=== PATIENT | female | born 1975 | race Hispanic/Latino ===

== ENCOUNTER 2017-12-15 20:16 | Emergency (ER) | payer OTHER ==
[2017-12-15 21:32] LABS: Absolute Lymphocytes (CBC) 1.8 K/uL (0.7-4.9); Absolute Monocytes 0.6 K/uL (0.1-1.3); Absolute Neutrophil 4.8 K/uL (1.8-8.0); Basophils % 0.7 % (0-1.3); Eosinophils % 2.2 % (0-4.4); Hematocrit 32.4 % (36.0-45.0); Lymphocytes % 23.8 % (15.3-44.8); MCH 22.7 pg (27.0-35.0); MPV 7.1 fL (7.6-11.3); Monocytes % 8.2 % (3.3-12.3)
--- NOTE | 2017-12-15 21:35 | RAD REPORT ---
EXAM DESCRIPTION: RAD - Chest Single View - 12/15/2017 9:28 pm CLINICAL HISTORY: Chest pain. COMPARISON: 12/10/2016 FINDINGS: Portable technique limits examination quality. The lungs are grossly clear. The heart is normal in size. No displaced fractures. IMPRESSION: No acute intrathoracic process suspected.
[2017-12-15 21:40] LABS: Protime INR 0.98
[2017-12-15 21:50] LABS: Urine Blood NEGATIVE (NEG); Urine Glucose NEGATIVE (NEG); Urine Protein NEGATIVE (NEG); Urine Specific Gravity 1.015 (1.005-1.030)
[2017-12-15 21:56] LABS: Potassium 3.8 mEq/L (3.6-5.0)
[2017-12-15 21:57] LABS: Barbiturates NEGATIVE; Benzodiazepines NEGATIVE; Cocaine NEGATIVE; METHAMPHETAM NEGATIVE; Opiates NEGATIVE; Phencyclidine NEGATIVE; THC Cannibis NEGATIVE
[2017-12-15 22:01] LABS: Anisocytosis 1+; Blood Morphology Comment NOTED (NOT SEEN); Platelet Estimate ADEQ; Urine White Blood Cell Casts OK
[2017-12-15 22:02] LABS: Albumin 3.9 g/dL (3.2-5.5); Bilirubin Direct 0.1 mg/dL (0-0.2); Bilirubin Total 0.4 mg/dL (0.3-1.2); Magnesium 1.9 mg/dL (1.8-2.5); Protein, Total 7.5 g/dL (6.0-8.3)
[2017-12-15 22:06] LABS: CKMB Creatine Kinase MB 0.7 ng/ml (0.3-4.0)
[2017-12-15] MEDS ORDERED: ASPIRIN 81 MG CHEWABLE TABLET ONE (23:33)
--- NOTE | 2017-12-16 01:28 | ER ---
Nurse's Notes [facility] Name: Saba Zelaya Age: 42 yrs Sex: Female : 1975 Arrival Date: 12/15/2017 Time: 20:20 Bed 27 Private MD: Diagnosis: Chest pain, unspecified Presentation: 12/15 20:24 Presenting complaint: states: Patient began feeling numb, shaky, trembling to lp1 lower lip; Numbness resolved at this time; States dry mouth; hx of anxiety. Transition of care: patient was not received from another setting of care. Onset of symptoms was December 15, 2017 at 20:00. Care prior to arrival: None. 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 - Social history:: Smoking status: Patient/guardian denies using tobacco. Screenin:28 Abuse screen: Denies threats or abuse. Denies injuries from another. Nutritional lp1 screening: No deficits noted. Tuberculosis screening: No symptoms or risk factors identified. Fall Risk None identified. Assessment: 21:08 General: Appears in no apparent distress. Behavior is calm, cooperative, appropriate lk1 for age. Pain: Denies pain. Neuro: Level of Consciousness is awake, alert, obeys commands, Oriented to person, place, time, situation, Moves all extremities. Full function Gait is steady, Speech is normal, Facial symmetry appears normal, Pupils are PERRLA. Neuro: Denies paresthesias numbness. Cardiovascular: Heart tones S1 S2 present Capillary refill is brisk Patient's skin is warm and dry. Respiratory: Airway is patent Respiratory effort is even, unlabored, Respiratory pattern is regular, symmetrical, Breath sounds are clear bilaterally. GI: Abdomen is non-distended, Bowel sounds present X 4 quads. : No signs and/or symptoms were reported regarding the genitourinary system. EENT: No signs and/or symptoms were reported regarding the EENT system. Derm: No signs and/or symptoms reported regarding the dermatologic system. Musculoskeletal: No signs and/or symptoms reported regarding the musculoskeletal system. 22:00 Reassessment: Patient and/or family updated on plan of care and expected duration. Pain lk1 level reassessed. Patient is alert, oriented x 3, equal unlabored respirations, skin warm/dry/pink. Patient denies pain at this time. Patient states symptoms have improved. 12/16 00:00 Reassessment: Patient and/or family updated on plan of care and expected duration. Pain lk1 level reassessed. Patient is alert, oriented x 3, equal unlabored respirations, skin warm/dry/pink. Patient denies pain at this time. Patient states feeling better. Patient states symptoms have improved. 01:00 Reassessment: Patient and/or family updated on plan of care and expected duration. Pain lk1 level reassessed. Patient is alert, oriented x 3, equal unlabored respirations, skin warm/dry/pink. Patient denies pain at this time. Patient states feeling better. Patient states symptoms have improved. Critical care time stopped, patient has stabilized. Vital Signs: 12/15 20:26 BP 116 / 88; Pulse 87; Resp 18; Temp 97.9(O); Pulse Ox 100% on R/A; Weight 97.52 kg; lp1 Height 5 ft. 4 in. (162.56 cm); Pain 0/10; 21:30 BP 111 / 69; Pulse 72; Resp 16; Pulse Ox 97% on R/A; lk1 22:30 BP 111 / 74; Pulse 71; Resp 15; Pulse Ox 97% on R/A; lk1 23:30 BP 120 / 72; Pulse 69; Resp 14; Pulse Ox 100% on R/A; lk1 12/16 00:30 BP 121 / 77; Pulse 75; Resp 15; Pulse Ox 99% on R/A; Pain 0/10; lk1 01:30 BP 120 / 82; Pulse 69; Resp 15; Pulse Ox 100% on R/A; Pain 0/10; lk1 12/15 20:26 Body Mass Index 36.90 (97.52 kg, 162.56 cm) lp1 ED Course: 12/15 20:20 Patient arrived in ED. am2 20:26 Triage completed. lp1 20:26 Arm band placed on left wrist. lp1 20:51 Fletcher Larson PA is PHCP. cp 20:51 Fletcher Jackson MD is Attending Physician. cp 21:06 Zaida Barksdale, RN is Primary Nurse. lk1 21:09 Patient has correct armband on for positive identification. Placed in gown. Bed in low lk1 position. Call light in reach. Adult w/ patient. 21:25 X-ray completed. Portable x-ray completed in exam room. Patient tolerated procedure kc2 well. 21:26 XRAY Chest (1 view) In Process Unspecified. EDMS 21:35 Inserted saline lock: 20 gauge in right antecubital area, using aseptic technique. lk1 Blood collected. 12/16 01:27 Beck Oliveira MD is Referral Physician. cp 02:00 No provider procedures requiring assistance completed. IV discontinued, intact, lk1 bleeding controlled, No redness/swelling at site. Pressure dressing applied. Administered Medications: 12/15 22:45 Drug: Aspirin Chewable Tablet 324 mg Route: PO; lk1 23:30 Follow up: Response: No adverse reaction lk1 Outcome: 12/16 01:27 Discharge ordered by . cp 02:00 Discharged to home ambulatory, with family. lk1 02:00 Condition: good 02:00 Discharge instructions given to patient, family, Instructed on discharge instructions, follow up and referral plans. medication usage, safety practices, Demonstrated understanding of instructions, follow-up care, medications. 02:01 Patient left the ED. lk1 Signatures: Dispatcher [employer] EDMS Bettina Tompkins, RN RN lp1 Fletcher Larson PA PA cp Zaida Barksdale, ABE RN lk1 Dasia Cardoso kc2 Jess Mcneal am2
--- NOTE | 2017-12-16 01:28 | EDPHYS ---
Physician Documentation [facility] Name: Saba Zelaya Age: 42 yrs Sex: Female : 1975 Arrival Date: 12/15/2017 Time: 20:20 Bed 27 Private MD: ED Physician Fletcher Jackson HPI: 12/15 21:00 This 42 yrs old Female presents to ER via Ambulatory with complaints of cp Numbness Of Arm, Shakes. 21:00 The patient or guardian reports chest pain that is located primarily in the anterior cp chest wall. 21:00 Onset: and improved while in ED, this evening. The pain radiates to. Associated signs cp and symptoms: Pertinent positives: tremor and numbness of bilateral upper extremities. Symptoms started suddenly about [address] in car with . The chest pain is described as a pressure. Duration: The patient or guardian reports a single episode, that is now resolved. 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 - Social history:: Smoking status: Patient/guardian denies using tobacco. ROS: 21:10 Constitutional: Positive for malaise, Negative for body aches, chills, fever, poor PO cp intake, weight loss. 21:10 Eyes: Negative for injury, pain, redness, and discharge. cp 21:10 ENT: Negative for drainage from ear(s), ear pain, sore throat, difficulty swallowing, difficulty handling secretions, hoarseness. 21:10 Cardiovascular: Positive for chest pain, Negative for edema. 21:10 Respiratory: Negative for cough, shortness of breath, wheezing. 21:10 Abdomen/GI: Negative for abdominal pain, nausea, vomiting, and diarrhea, anorexia, black/tarry stool, rectal bleeding. 21:10 Back: Negative for pain at rest, pain with movement, radiated pain. 21:10 : Negative for urinary symptoms, vaginal bleeding. 21:10 MS/extremity: Positive for paresthesias, of the right arm and left arm, Negative for injury or acute deformity, decreased range of motion. 21:10 Skin: Negative for cellulitis, rash. 21:10 Neuro: Positive for tremor, Negative for altered mental status, headache, syncope, near syncope, visual changes, weakness. 21:10 All other systems are negative. Exam: 21:15 Constitutional: The patient appears in no acute distress, alert, awake, cp non-diaphoretic, non-toxic, well developed, well nourished, overweight 21:15 Head/Face: Normocephalic, atraumatic. Eyes: Pupils equal round and reactive to light, cp extra-ocular motions intact. Lids and lashes normal. Conjunctiva and sclera are non-icteric and not injected. Cornea within normal limits. Periorbital areas with no swelling, redness, or edema. ENT: Nares patent. No nasal discharge, no septal abnormalities noted. Tympanic membranes are normal and external auditory canals are clear. Oropharynx with no redness, swelling, or masses, exudates, or evidence of obstruction, uvula midline. Mucous membranes moist. Neck: Trachea midline, no thyromegaly or masses palpated, and no cervical lymphadenopathy. Supple, full range of motion without nuchal rigidity, or vertebral point tenderness. No Meningismus. 21:15 Chest/axilla: Inspection: normal, Palpation: is normal, no crepitus, no tenderness. 21:15 Cardiovascular: Rate: normal, Rhythm: regular, Pulses: Pulses are 2+ in right radial artery and left radial artery. Heart sounds: murmur, not appreciated, Edema: is not appreciated, JVD: is not appreciated. 21:15 Respiratory: the patient does not display signs of respiratory distress, Respirations: normal, no use of accessory muscles, no retractions, no splinting, no tachypnea, labored breathing, is not present, Breath sounds: are clear throughout, no decreased breath sounds, no stridor, no wheezing. 21:15 Abdomen/GI: Inspection: abdomen appears normal, Bowel sounds: active, all quadrants, Palpation: abdomen is soft and non-tender, in all quadrants, voluntary guarding, is not appreciated, involuntary guarding, is not appreciated. 21:15 Back: pain, is absent, ROM is normal. 21:15 Skin: cellulitis, is not appreciated, no rash present. 21:15 Neuro: Orientation: to person, place \T\ time. Mentation: is normal, Cerebellar function: is grossly normal, Motor: moves all fours, strength is normal, Sensation: no obvious gross deficits. 22:00 ECG was reviewed by the Attending Physician. 12/16 00:54 ECG was reviewed by the Attending Physician. Vital Signs: 12/15 20:26 BP 116 / 88; Pulse 87; Resp 18; Temp 97.9(O); Pulse Ox 100% on R/A; Weight 97.52 kg; lp1 Height 5 ft. 4 in. (162.56 cm); Pain 0/10; 21:30 BP 111 / 69; Pulse 72; Resp 16; Pulse Ox 97% on R/A; lk1 22:30 BP 111 / 74; Pulse 71; Resp 15; Pulse Ox 97% on R/A; lk1 23:30 BP 120 / 72; Pulse 69; Resp 14; Pulse Ox 100% on R/A; lk1 12/16 00:30 BP 121 / 77; Pulse 75; Resp 15; Pulse Ox 99% on R/A; Pain 0/10; lk1 01:30 BP 120 / 82; Pulse 69; Resp 15; Pulse Ox 100% on R/A; Pain 0/10; lk1 12/15 20:26 Body Mass Index 36.90 (97.52 kg, 162.56 cm) lp1 MDM: 12/15 20:51 Patient medically screened. 12/16 00:00 Differential diagnosis: abnormal EKG, acute myocardial infarction, anxiety, cp pancreatitis, pericarditis, pulmonary embolus, stable angina, thoracic aortic disection, unstable angina. 01:26 The patient was given aspirin in the Emergency Department. 01:26 Data reviewed: vital signs, nurses notes, lab test result(s), EKG, radiologic studies, cp plain films, and as a result, I will discharge patient. Special discussion: Based on the patient's history, exam, and Dx evaluation, there is no indication for emergent intervention or inpatient Tx. It is understood by the patient/guardian that if the Sx's persist or worsen they need to return immediately for re-evaluation. 01:26 ED course: VSS. Initial and repeat EKG and troponin enzyme negative. Will discharge to home for continued monitoring. 12/15 21:03 Order name: Basic Metabolic Panel; Complete Time: 22:27 cp 12/15 22:27 Interpretation: Normal except: GFR 80. cp 12/15 21:03 Order name: BNP; Complete Time: 22:27 cp 12/15 21:03 Order name: CBC with Diff; Complete Time: 22:27 cp 12/15 21:03 Order name: Ckmb; Complete Time: 22:27 cp 12/15 21:03 Order name: CPK; Complete Time: 22:27 cp 12/15 21:03 Order name: LFT's; Complete Time: 22:27 cp 12/15 21:03 Order name: Magnesium; Complete Time: 22:27 cp 12/15 21:03 Order name: PT-INR; Complete Time: 22:27 cp 12/15 21:03 Order name: Ptt, Activated; Complete Time: 22:27 cp 12/15 21:03 Order name: Troponin (emerg Dept Use Only); Complete Time: 22:27 cp 12/15 21:03 Order name: UDS; Complete Time: 22:27 cp 12/15 21:34 Order name: CBC Smear Scan; Complete Time: 22:27 EDMS 12/15 21:49 Order name: Urine Dipstick--Ancillary (enter results) [facility] 12/15 21:49 Order name: Urine --Ancillary (enter results); Complete Time: 22:27 2 12/15 21:03 Order name: Urine Test (obtain specimen); Complete Time: 21:42 cp 12/15 21:03 Order name: XRAY Chest (1 view); Complete Time: 22:27 cp 12/15 21:03 Order name: EKG; Complete Time: 21:03 cp 12/15 21:03 Order name: Cardiac monitoring; Complete Time: 21:42 cp 12/15 21:03 Order name: EKG - Nurse/Tech; Complete Time: 21:57 cp 12/15 21:03 Order name: IV Saline Lock; Complete Time: 21:42 cp 12/15 21:03 Order name: Labs collected and sent; Complete Time: 21:42 cp 12/15 21:03 Order name: O2 Per Protocol; Complete Time: 21:42 cp 12/15 21:03 Order name: O2 Sat Monitoring; Complete Time: 21:42 cp 12/15 21:03 Order name: Urine Dipstick-Ancillary (obtain specimen); Complete Time: 21:42 cp 12/15 21:50 Order name: Urine Dipstick-Ancillary; Complete Time: 22:27 EDHI 12/16 00:42 Order name: Troponin I; Complete Time: 01:26 cp 12/16 00:42 Order name: EKG; Complete Time: 00:45 cp 12/16 00:42 Order name: EKG - Nurse/Tech; Complete Time: 00:57 cp EC/30 22:00 Rate is 73 beats/min. Rhythm is regular. WV interval is normal. QRS interval is normal. cp QT interval is normal. No ST changes noted. Interpreted by me. Reviewed by me. 12/16 00:54 Rate is 74 beats/min. Rhythm is regular. WV interval is normal. QRS interval is normal. cp QT interval is normal. No ST changes noted. Interpreted by me. Reviewed by me. Administered Medications: 12/15 22:45 Drug: Aspirin Chewable Tablet 324 mg Route: PO; lk1 23:30 Follow up: Response: No adverse reaction lk1 Disposition: 12/16/17 01:27 Discharged to Home. Impression: Chest pain, unspecified. - Condition is Stable. - Medication Reconciliation Form, Thank You Letter, Antibiotic Education, Prescription Opioid Use form. - Follow up: Beck Oliveira MD; When: 2 - 3 days; Reason: chest pain. - Problem is new. - Symptoms have improved. Addendum: 12/18/2017 07:17 Co-signature as Attending Physician, Fletcher Jackson MD I agree with the assessment and c veliz plan of care. Signatures: Dispatcher [employer] [facility] Fletcher Jackson MD MD cha Pena, Laura, RN RN lp1 Fletcher Larson PA PA cp Kluge, Leah RN RN lk1
[2017-12-16 02:04] VITALS: TEMP 97.9
[2017-12-16 02:10] VITALS: BP 120/82; O2SAT 100
--- NOTE | 2017-12-17 12:51 | EKG ---
Test Date: 2017-12-16 Test Time: 00:49:28 Cattle Dipper: MEASUREMENT RESULTS: Intervals: Rate: 74 AL: 144 QRSD: 92 QT: 414 QTc: 459 [place]: P: 52 AL: 144 QRS: 62 T: 40 INTERPRETIVE STATEMENTS: Normal sinus rhythm Normal ECG Compared to ECG 12/15/2017 21:53:49 No significant changes Electronically Signed On 12-17-17 12:51:17 CDT by Beck Oliveira
--- NOTE | 2017-12-17 12:52 | EKG ---
Test Date: 2017-12-15 Test Time: 21:53:49 Boat Washer: KAYLENE MEASUREMENT RESULTS: Intervals: Rate: 73 SD: 134 QRSD: 94 QT: 402 QTc: 442 [place]: P: 28 SD: 134 QRS: 62 T: 39 INTERPRETIVE STATEMENTS: Normal sinus rhythm Normal ECG Compared to ECG 12/10/2016 19:06:49 No significant changes Electronically Signed On 12-17-17 12:51:53 CDT by Beck Oliveira
== END 2017-12-16 02:01 | disposition home or self-care (01) ==
LOC: ER 20:16
DX: R07.9 Chest pain, unspecified (principal); F41.9 Anxiety disorder, unspecified; Z91.040 Latex allergy status; Z91.048 Other nonmedicinal substance allergy status
CPT/HCPCS: 36415; 71045; 80048; 80076; 80307; 81003; 81025; 82550; 82553; 83735; 83880; 84484; 85025; 85610; 85730; 93005; 99284

== ENCOUNTER 2018-12-07 11:51 | Emergency (ER) | payer OTHER ==
[2018-12-07] MEDS ORDERED: NA CHLORIDE 0.9% 1,000 ML ONE (13:13)
[2018-12-07] MEDS ORDERED: KETOROLAC 30 MG/ML INJ ONE (13:13)
[2018-12-07 13:30] LABS: Absolute Lymphocytes (CBC) 1.7 K/uL (0.7-4.9); Absolute Monocytes 0.4 K/uL (0.1-1.3); Absolute Neutrophil 3.7 K/uL (1.8-8.0); Basophils % 0.7 % (0-1.3); Eosinophils % 2.9 % (0-4.4); Hematocrit 38.4 % (36.0-45.0); Lymphocytes % 27.8 % (15.3-44.8); MPV 7.5 fL (7.6-11.3); Monocytes % 7.1 % (3.3-12.3); RBC Red Blood Cell Count 4.85 M/uL (3.86-4.86)
[2018-12-07 13:44] LABS: Potassium 3.9 mmol/L (3.5-5.1)
[2018-12-07 13:50] LABS: Urine Blood NEGATIVE (NEG); Urine Glucose NEGATIVE (NEG); Urine Protein NEGATIVE (NEG); Urine Specific Gravity 1.025 (1.005-1.030)
[2018-12-07 14:31] LABS: Urine Amorphous Sediment 2+ /HPF (NONE SEEN); Urine Bacteria 20-50 /HPF (<20); Urine Culture Reflex Order REFLEXED; Urine RBC NONE SEEN /HPF (NONE SEEN)
--- NOTE | 2018-12-07 14:59 | RAD REPORT ---
EXAM DESCRIPTION: CT - Stone Protocol - 12/07/2018 2:45 pm CLINICAL HISTORY: Left-sided back and flank pain, history of UTI COMPARISON: CT imaging October 2016 TECHNIQUE: Axial 3 mm thick images were obtained without oral or IV contrast. The [id number] span s the entirety of the system partially obscuring uppermost abdomen and lung bases. All CT scans are performed using dose optimization technique as appropriate and may include automated exposure control or mA/KV adjustment according to patient size. FINDINGS: No hydronephrosis is present and no obstructing ureteral calculi. No suspicious renal mass es. Isodense masses and pyelonephritis are not excluded on a stone protocol CT scan. No urinary bladd er suspicious finding. No significant adrenal finding. Uterus and ovaries show no suspicious findings . No focal liver lesion. Attenuation indicates mild diffuse fatty infiltration. No splenomegaly or foca l splenic finding. A small accessory splenic nodule is present similar to comparison. Gallbladder is absent. No biliary tree dilatation. No gastric dilatation or wall thickening. No dilated large or small bowel. Appendix is normal. No acu te GI process seen. No mass or bulky lymphadenopathy. Small nonspecific masses or lymph nodes in the right mid abdomen ar e stable from 2017. No free air, free fluid or inflammatory stranding. No significant bony abnormality. IMPRESSION: No hydronephrosis, obstructing calculus or acute finding. Isodense masses and pyelonephritis are not excluded on stone protocol technique. No acute GI or SUPERVISOR INSTRUMENT MAINTENANCE process. Liver is fatty infiltrated with post cholecystectomy changes noted.
--- NOTE | 2018-12-07 15:03 | EDPHYS ---
Physician Documentation [facility] Name: Saba Zelaya Age: 43 yrs Sex: Female : 1975 Arrival Date: 12/07/2018 Time: 11:52 Bed 15 Private MD: ED Physician Fletcher Jackson HPI: 12/07 14:51 This 43 yrs old Female presents to ER via Ambulatory with complaints of kb Possible Kidney Stone. 14:52 The patient complains of pain in the left flank. The pain radiates to the abdomen. kb Onset: The symptoms/episode began/occurred 2 week(s) ago. Modifying factors: The symptoms are alleviated by nothing. the symptoms are aggravated by nothing. Associated signs and symptoms: Pertinent positives: urinary frequency, Pertinent negatives: diarrhea, dizziness, dysuria, fever, headache, hematuria, nausea, pain radiating to the lower extremities, vomiting. Severity of pain: At its worst the pain was moderate in the emergency department the pain is unchanged. The patient has not experienced similar symptoms in the past. The patient has been recently seen by a physician:. Pt has had left flank pain and urinary frequency. Had urine tested today and given cipro, flomax and another medication, but she has not picked them up from the pharmacy yet. 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 - Social history:: Smoking status: Patient/guardian denies using tobacco, Patient/guardian denies using alcohol, street drugs. - Ebola Screening: : Patient negative for fever greater than or equal to 101.5 degrees Fahrenheit, and additional compatible Ebola Virus Disease symptoms Patient denies exposure to infectious person Patient denies travel to an Ebola-affected area in the 21 days before illness onset No symptoms or risks identified at this time. ROS: 14:50 Constitutional: Negative for fever, chills, and weight loss, ENT: Negative for injury, kb pain, and discharge, Neck: Negative for injury, pain, and swelling, Cardiovascular: Negative for chest pain, palpitations, and edema, Respiratory: Negative for shortness of breath, cough, wheezing, and pleuritic chest pain, Abdomen/GI: Negative for abdominal pain, nausea, vomiting, diarrhea, and constipation, MS/Extremity: Negative for injury and deformity, Skin: Negative for injury, rash, and discoloration, Neuro: Negative for headache, weakness, numbness, tingling, and seizure. 14:50 : Positive for urinary symptoms, flank pain, urinary frequency. Exam: 14:50 Constitutional: This is a well developed, well nourished patient who is awake, alert, kb and in no acute distress. Head/Face: Normocephalic, atraumatic. Chest/axilla: Normal chest wall appearance and motion. Nontender with no deformity. No lesions are appreciated. Cardiovascular: Regular rate and rhythm with a normal S1 and S2. No gallops, murmurs, or rubs. Normal PMI, no JVD. No pulse deficits. Respiratory: Lungs have equal breath sounds bilaterally, clear to auscultation and percussion. No rales, rhonchi or wheezes noted. No increased work of breathing, no retractions or nasal flaring. Abdomen/GI: Soft, non-tender, with normal bowel sounds. No distension or tympany. No guarding or rebound. No evidence of tenderness throughout. Skin: Warm, dry with normal turgor. Normal color with no rashes, no lesions, and no evidence of cellulitis. MS/ Extremity: Pulses equal, no cyanosis. Neurovascular intact. Full, normal range of motion. Neuro: Awake and alert, GCS 15, oriented to person, place, time, and situation. Cranial nerves II-XII grossly intact. Motor strength 5/5 in all extremities. Sensory grossly intact. Cerebellar exam normal. Normal gait. 14:50 Back: pain, that is moderate, of the left flank, ROM is normal, normal spinal alignment noted, CVA tenderness, that is moderate, is noted on the left. Vital Signs: 12:09 BP 128 / 65; Pulse 84; Resp 16; Temp 98.8; Pulse Ox 99% on R/A; Weight 95.25 kg; Height ch 5 ft. 3 in. (160.02 cm); Pain 8/10; 13:10 BP 122 / 81; Pulse 77; Resp 20; Pulse Ox 100% on R/A; Pain 8/10; em 14:07 BP 129 / 69; Pulse 77; Resp 18; Pulse Ox 99% on R/A; Pain 1/10; em 12:09 Body Mass Index 37.20 (95.25 kg, 160.02 cm) ch MDM: 12:21 Patient medically screened. kb 14:50 Data reviewed: vital signs, nurses notes. Data interpreted: Pulse oximetry: on room air kb is 99 %. Interpretation: normal. 15:02 Counseling: I had a detailed discussion with the patient and/or guardian regarding: the kb historical points, exam findings, and any diagnostic results supporting the discharge/admit diagnosis, lab results, radiology results, the need for outpatient follow up, a family practitioner, to return to the emergency department if symptoms worsen or persist or if there are any questions or concerns that arise at home. 12/07 12:08 Order name: Urine Microscopic Only; Complete Time: 14:34 kb 12/07 12:33 Order name: Basic Metabolic Panel; Complete Time: 13:46 kb 12/07 12:33 Order name: CBC with Diff; Complete Time: 13:46 kb 12/07 12:36 Order name: Urine Dipstick--Ancillary (enter results); Complete Time: 13:51 eb 12/07 12:36 Order name: Urine --Ancillary (enter results); Complete Time: 13:51 eb 12/07 14:32 Order name: Urine Culture EDAZ 12/07 12:08 Order name: Urine Dipstick-Ancillary (obtain specimen); Complete Time: 12:29 kb 12/07 12:33 Order name: IV Saline Lock; Complete Time: 13:32 kb 12/07 12:33 Order name: Labs collected and sent; Complete Time: 13:31 kb 12/07 14:21 Order name: CT Stone Protocol; Complete Time: 15:02 kb Administered Medications: 12:20 Drug: NS 0.9% 1000 ml Route: IV; Rate: 1000 ml; Site: right antecubital; em 15:12 Follow up: IV Status: Completed infusion; IV Intake: 1000ml em 13:20 Drug: TORadol 30 mg Route: IVP; Site: right antecubital; iw 15:12 Follow up: Response: No adverse reaction; Pain is decreased em 15:24 Drug: Cipro 500 mg Route: PO; em 15:25 Follow up: Response: Medication administered at discharge. em 15:25 Drug: Pyridium 200 mg Route: PO; em 15:25 Follow up: Response: Medication administered at discharge. em Disposition: 12/07/18 15:03 Discharged to Home. Impression: Urinary tract infection, site not specified. - Condition is Stable. - Discharge Instructions: Urinary Tract Infection, Adult, [id number]. - Prescriptions for Pyridium 200 mg Oral Tablet - take 1 tablet by ORAL route every 8 hours for 3 days; 9 tablet. - Medication Reconciliation Form, Thank You Letter, Antibiotic Education, Prescription Opioid Use form. - Follow up: Emergency Department; When: As needed; Reason: Worsening of condition. Follow up: Private Physician; When: 2 - 3 days; Reason: Recheck today's complaints, Continuance of care, Re-evaluation by your physician. Addendum: 12/10/2018 07:10 Co-signature as Attending Physician, Fletcher Jackson MD I agree with the assessment and c veliz plan of care. Signatures: Dispatcher [employer] Janette Hall, INDUSTRIAL TRUCK MECHANIC-C INDUSTRIAL TRUCK MECHANIC-Ckb Kami Mishra, RN RN Fletcher Gilman MD MD cha Munoz, Edgar, ADMINISTRATIVE NURSING SUPERVISOR ADMINISTRATIVE NURSING SUPERVISOR em Babs Ugarte, RN RN iw Corrections: (The following items were deleted from the chart) 12/07 15:26 15:03 12/07/2018 15:03 Discharged to Home. Impression: Urinary tract infection, site em not specified. Condition is Stable. Forms are Medication Reconciliation Form, Thank You Letter, Antibiotic Education, Prescription Opioid Use. Follow up: Emergency Department; When: As needed; Reason: Worsening of condition. Follow up: Private Physician; When: 2 - 3 days; Reason: Recheck today's complaints, Continuance of care, Re-evaluation by your physician. kb
--- NOTE | 2018-12-07 15:03 | ER ---
Nurse's Notes [facility] Name: Saba Zelaya Age: 43 yrs Sex: Female : 1975 Arrival Date: 12/07/2018 Time: 11:52 Bed 15 Private MD: Diagnosis: Urinary tract infection, site not specified Presentation: 12/07 12:07 Presenting complaint: states: pain to kidney, L side, wraps around her back, ch for the past 2 weeks, Dr. Cruz office staff said she had a uti, but unknown about kidney stone. pt states she feels bloated. Transition of care: patient was not received from another setting of care. Onset of symptoms was November 18, 2018. Risk Assessment: Do you want to hurt yourself or someone else? Patient reports no desire to harm self or others. Initial Sepsis Screen: Does the patient meet any 2 criteria? No. Patient's initial sepsis screen is negative. Does the patient have a suspected source of infection? No. Patient's initial sepsis screen is negative. Care prior to arrival: None. 12:07 Method Of Arrival: Ambulatory 12:07 Acuity: LEONIDAS 3 ch Triage Assessment: 12:09 General: Appears in no apparent distress. uncomfortable, Behavior is calm, cooperative, ch appropriate for age. Pain: Complains of pain in left mid back, posterior aspect of left lateral abdomen and anterior aspect of left lateral abdomen Pain currently is 8 out of 10 on a pain scale. GI: Reports bloating, nausea. : Reports burning with urination. 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 - Social history:: Smoking status: Patient/guardian denies using tobacco, Patient/guardian denies using alcohol, street drugs. - Ebola Screening: : Patient negative for fever greater than or equal to 101.5 degrees Fahrenheit, and additional compatible Ebola Virus Disease symptoms Patient denies exposure to infectious person Patient denies travel to an Ebola-affected area in the 21 days before illness onset No symptoms or risks identified at this time. Screenin:30 Abuse screen: Denies threats or abuse. Nutritional screening: No deficits noted. em Tuberculosis screening: No symptoms or risk factors identified. Fall Risk None identified. Assessment: 12:30 General: Appears in no apparent distress. comfortable, Behavior is calm, cooperative, em Denies fever. Pain: Complains of pain in left lower back Pain radiates to anterior aspect of left lateral abdomen Quality of pain is described as sharp. Neuro: Level of Consciousness is awake, alert, obeys commands, Oriented to person, place, time, situation. Cardiovascular: Capillary refill < 3 seconds Patient's skin is warm and dry. Respiratory: Airway is patent Respiratory effort is even, unlabored, Respiratory pattern is regular, symmetrical. GI: Abdomen is flat, Bowel sounds present X 4 quads. Abd is soft and non tender X 4 quads. Reports nausea, Patient currently denies diarrhea, vomiting. : Urine is clear, Reports burning with urination, Denies. Derm: Skin is intact, is healthy with good turgor, Skin is pink, warm \T\ dry. Musculoskeletal: Range of motion: intact in all extremities. 13:30 Reassessment: Patient appears in no apparent distress at this time. Patient and/or em family updated on plan of care and expected duration. Pain level reassessed. Patient is alert, oriented x 3, equal unlabored respirations, skin warm/dry/pink. 14:33 Reassessment: Patient appears in no apparent distress at this time. Patient and/or em family updated on plan of care and expected duration. Pain level reassessed. Patient is alert, oriented x 3, equal unlabored respirations, skin warm/dry/pink. Patient states feeling better. Patient states symptoms have improved. 15:23 Reassessment: Patient appears in no apparent distress at this time. Patient and/or em family updated on plan of care and expected duration. Pain level reassessed. Patient is alert, oriented x 3, equal unlabored respirations, skin warm/dry/pink. rates pain 1/10. Vital Signs: 12:09 BP 128 / 65; Pulse 84; Resp 16; Temp 98.8; Pulse Ox 99% on R/A; Weight 95.25 kg; Height ch 5 ft. 3 in. (160.02 cm); Pain 8/10; 13:10 BP 122 / 81; Pulse 77; Resp 20; Pulse Ox 100% on R/A; Pain 8/10; em 14:07 BP 129 / 69; Pulse 77; Resp 18; Pulse Ox 99% on R/A; Pain 1/10; em 12:09 Body Mass Index 37.20 (95.25 kg, 160.02 cm) ED Course: 11:52 Patient arrived in ED. as 12:03 Janette Bernal FNP-C is PHCP. kb 12:03 Fletcher Jackson MD is Attending Physician. kb 12:08 Triage completed. 12:09 Arm band placed on left wrist. Patient placed in an exam room, on a stretcher. 12:29 Jung Lyman LVN is Primary Nurse. em 12:30 Patient has correct armband on for positive identification. Bed in low position. Call em light in reach. Side rails up X2. personnel monitor on. Pulse ox on. NIBP on. 13:20 Initial lab(s) drawn, by ok, sent to lab. Inserted saline lock: 20 gauge in right em antecubital area, using aseptic technique. Blood collected. 14:43 CT completed. Patient tolerated procedure well. Patient moved to CT via wheelchair. sj Patient moved back from CT. 14:45 CT Stone Protocol In Process Unspecified. EDMS 15:22 No provider procedures requiring assistance completed. IV discontinued, intact, em bleeding controlled, No redness/swelling at site. Pressure dressing applied. Administered Medications: 12:20 Drug: NS 0.9% 1000 ml Route: IV; Rate: 1000 ml; Site: right antecubital; em 15:12 Follow up: IV Status: Completed infusion; IV Intake: 1000ml em 13:20 Drug: TORadol 30 mg Route: IVP; Site: right antecubital; iw 15:12 Follow up: Response: No adverse reaction; Pain is decreased em 15:24 Drug: Cipro 500 mg Route: PO; em 15:25 Follow up: Response: Medication administered at discharge. em 15:25 Drug: Pyridium 200 mg Route: PO; em 15:25 Follow up: Response: Medication administered at discharge. em Intake: 15:12 IV: 1000ml; Total: 1000ml. em Outcome: 15:03 Discharge ordered by . kb 15:23 Discharged to home ambulatory, with family. em 15:23 Condition: good 15:23 Discharge instructions given to patient, family, Instructed on discharge instructions, follow up and referral plans. medication usage, Demonstrated understanding of instructions, follow-up care, medications, Prescriptions given X 2. 15:26 Patient left the ED. em Signatures: Dispatcher [employer] EDTX Janette Bernal, RN TEAM LEADER-C RN TEAM LEADER-Kami Bagley, RN RN Soo Guallpa Edgar, NURSING AGENCY MANAGER NURSING AGENCY MANAGER em Lisa Pinon Irene, RN RN iw
[2018-12-07] MEDS ORDERED: PHENAZOPYRIDINE 100MG TAB PO ONE (15:24)
[2018-12-07] MEDS ORDERED: CIPROFLOXACIN HCL 500 MG TAB ONE (15:24)
[2018-12-07 15:31] VITALS: TEMP 98.8
[2018-12-07 15:33] VITALS: BP 129/69; O2SAT 99
== END 2018-12-07 15:26 | disposition home or self-care (01) ==
LOC: ER 11:51
DX: N39.0 Urinary tract infection, site not specified (principal); Z88.1 Allergy status to other antibiotic agents; Z91.040 Latex allergy status; Z91.048 Other nonmedicinal substance allergy status
CPT/HCPCS: 36415; 74176; 76377; 80048; 81003; 81015; 81025; 85025; 87086; 87088; 96361; 96374; 99285; J7030

== ENCOUNTER 2019-03-08 16:44 | Emergency (ER) | payer OTHER ==
--- NOTE | 2019-03-08 17:49 | RAD REPORT ---
EXAM DESCRIPTION: CT - [id number] - 03/08/2019 5:40 pm CLINICAL HISTORY: Fall, head and neck injury COMPARISON: None. TECHNIQUE: Axial 5 mm thick images of the head were obtained. Axial 2 mm thick images of the cervic al spine were obtained with sagittal and coronal reconstruction images generated and reviewed. All CT scans are performed using dose optimization technique as appropriate and may include automated exposure control or mA/KV adjustment according to patient size. FINDINGS: No intracranial hemorrhage, mass, edema or acute intracranial finding. No suspicion for acute infarct ion. No extra-axial fluid collections. Mastoid air cells and paranasal sinuses are clear. No globe or orbit abnormality seen. Cervical body height and alignment are normal. No disk space narrowing. No fracture or acute bony abn ormality. No paraspinal mass or hematoma. IMPRESSION: Negative CT head examination for acute or significant finding. Negative CT cervical spine examination for acute or significant finding.
--- NOTE | 2019-03-08 18:30 | ER ---
Nurse's Notes [facility] Name: Saba Zelaya Age: 44 yrs Sex: Female : 1975 Arrival Date: 03/08/2019 Time: 16:46 Bed 27 Private MD: Diagnosis: Contusion of left hand;Superficial injury of head Presentation: 03/08 16:54 Presenting complaint: states: "She slipped on something wet and fell in the 1 kitchen today and hit her head"; Complaint of pain to neck and lower back; States hitting buttocks first and then hit back of head on tile hoda; No LOC. Transition of care: patient was not received from another setting of care. Onset of symptoms was March 08, 2019 at 14:30. Risk Assessment: Do you want to hurt yourself or someone else? Patient reports no desire to harm self or others. Initial Sepsis Screen: Does the patient meet any 2 criteria? No. Patient's initial sepsis screen is negative. Does the patient have a suspected source of infection? No. Patient's initial sepsis screen is negative. Note states "She is having an anxiety attack right now too". Care prior to arrival: None. 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 - Social history:: Smoking status: Patient/guardian denies using tobacco. - Ebola Screening: : No symptoms or risks identified at this time. Screenin:59 Abuse screen: Denies threats or abuse. Denies injuries from another. Nutritional lp1 screening: No deficits noted. Tuberculosis screening: No symptoms or risk factors identified. 18:42 Fall Risk None identified. aj1 Assessment: 17:30 General: Appears in no apparent distress. uncomfortable, Behavior is calm, cooperative, aj1 appropriate for age. Pain: Complains of pain in back and neck and left hand Pain currently is 8 out of 10 on a pain scale. Neuro: Level of Consciousness is awake, alert, obeys commands, Oriented to person, place, time, situation. Cardiovascular: Patient's skin is warm and dry. Respiratory: Airway is patent Respiratory effort is even, unlabored, Respiratory pattern is regular, symmetrical. GI: No signs and/or symptoms were reported involving the gastrointestinal system. : No signs and/or symptoms were reported regarding the genitourinary system. EENT: No signs and/or symptoms were reported regarding the EENT system. Derm: No signs and/or symptoms reported regarding the dermatologic system. Musculoskeletal: No signs and/or symptoms reported regarding the musculoskeletal system. Range of motion: intact in all extremities. 18:42 Reassessment: Patient appears in no apparent distress at this time. No changes from aj1 previously documented assessment. Patient and/or family updated on plan of care and expected duration. Pain level reassessed. Patient is alert, oriented x 3, equal unlabored respirations, skin warm/dry/pink. Vital Signs: 16:56 BP 154 / 79; Pulse 103; Resp 18; Temp 98.4(TE); Pulse Ox 98% on R/A; Weight 99.79 kg lp1 (R); Height 5 ft. 5 in. (165.10 cm); Pain 9/10; 18:00 BP 113 / 83; Pulse 89; Resp 18; Pulse Ox 98% on R/A; aj1 16:56 Body Mass Index 36.61 (99.79 kg, 165.10 cm) lp1 ED Course: 16:46 Patient arrived in ED. mr 16:56 Triage completed. lp1 16:57 Arm band placed on left wrist. lp1 17:03 Alvaro Tolbert PA is PHCP. jr8 17:03 Donn Larson MD is Attending Physician. jr8 17:28 Nedra Armas, ABE is Primary Nurse. aj1 17:30 Patient has correct armband on for positive identification. Bed in low position. Call aj1 light in reach. Side rails up X 1. 17:30 No provider procedures requiring assistance completed. aj1 17:[address] via wheelchair. nj 18:42 Patient did not have IV access during this emergency room visit. aj1 18:54 XRAY Hand LEFT 3 View In Process Unspecified. EDMS Administered Medications: No medications were administered Outcome: 18:30 Discharge ordered by . cheryl 18:42 Discharged to home ambulatory. aj1 18:42 Condition: good 18:42 Discharge instructions given to patient, family, Instructed on discharge instructions, follow up and referral plans. Demonstrated understanding of instructions, follow-up care. 18:43 Patient left the ED. aj1 Signatures: Dispatcher [employer] EDMS Nedra Armas, RN RN aj1 Corina Jama TompkinsBettina lopez RN RN lp1 Alvaro Tolbert PA PA jr8 Sergio Marin
--- NOTE | 2019-03-08 18:30 | EDPHYS ---
Physician Documentation [facility] Name: Saba Zelaya Age: 44 yrs Sex: Female : 1975 Arrival Date: 03/08/2019 Time: 16:46 Bed 27 Private MD: ED Physician Donn Larson HPI: 03/08 17:47 This 44 yrs old Female presents to ER via Wheelchair with complaints of Fall jr8 Injury, Head Injury Without LOC-Adult. 17:47 Details of fall: The patient fell from an upright position, while standing. Onset: The jr8 symptoms/episode began/occurred acutely, today. Associated injuries: The patient sustained injury to the head, left hand. Severity of symptoms: At their worst the symptoms were mild, in the emergency department the symptoms are unchanged. The patient has not experienced similar symptoms in the past. The patient has not recently seen a physician. Stated that she tripped and fell hitting back of head and left hand . 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 - Social history:: Smoking status: Patient/guardian denies using tobacco. - Ebola Screening: : No symptoms or risks identified at this time. ROS: 17:52 Eyes: Negative for injury, pain, redness, and discharge, ENT: Negative for injury, jr8 pain, and discharge, Neck: Negative for injury, pain, and swelling, Cardiovascular: Negative for chest pain, palpitations, and edema, Respiratory: Negative for shortness of breath, cough, wheezing, and pleuritic chest pain, Abdomen/GI: Negative for abdominal pain, nausea, vomiting, diarrhea, and constipation, Back: Negative for injury and pain, Skin: Negative for injury, rash, and discoloration. 17:52 MS/extremity: Positive for pain, tenderness, of the left hand. 17:52 Neuro: Positive for headache. Exam: 17:52 Head/Face: Normocephalic, atraumatic. Eyes: Pupils equal round and reactive to light, jr8 extra-ocular motions intact. Lids and lashes normal. Conjunctiva and sclera are non-icteric and not injected. Cornea within normal limits. Periorbital areas with no swelling, redness, or edema. ENT: Nares patent. No nasal discharge, no septal abnormalities noted. Tympanic membranes are normal and external auditory canals are clear. Oropharynx with no redness, swelling, or masses, exudates, or evidence of obstruction, uvula midline. Mucous membranes moist. Chest/axilla: Normal chest wall appearance and motion. Nontender with no deformity. No lesions are appreciated. Cardiovascular: Regular rate and rhythm with a normal S1 and S2. No gallops, murmurs, or rubs. Normal PMI, no JVD. No pulse deficits. Respiratory: Lungs have equal breath sounds bilaterally, clear to auscultation and percussion. No rales, rhonchi or wheezes noted. No increased work of breathing, no retractions or nasal flaring. Abdomen/GI: Soft, non-tender, with normal bowel sounds. No distension or tympany. No guarding or rebound. No evidence of tenderness throughout. Back: No spinal tenderness. No costovertebral tenderness. Full range of motion. Skin: Warm, dry with normal turgor. Normal color with no rashes, no lesions, and no evidence of cellulitis. Neuro: Awake and alert, GCS 15, oriented to person, place, time, and situation. Cranial nerves II-XII grossly intact. Motor strength 5/5 in all extremities. Sensory grossly intact. Cerebellar exam normal. Normal gait. 17:52 Neck: External neck: is normal, C-spine: vertebral tenderness, that is mild, appreciated at C5 and C6, Thyroid: appears normal, Trachea: is midline with no obvious abnormalities, ROM/movement: pain, that is mild, with any movement, Lymph nodes: no appreciated lymphadenopathy. 17:52 Musculoskeletal/extremity: Extremities: grossly normal except: noted in the left hand: pain, tenderness, ROM: intact in all extremities, full active range of motion, full passive range of motion, Circulation is intact in all extremities. Pulses: noted to be 2+ in the right radial artery and left radial artery, Sensation intact. Vital Signs: 16:56 BP 154 / 79; Pulse 103; Resp 18; Temp 98.4(TE); Pulse Ox 98% on R/A; Weight 99.79 kg lp1 (R); Height 5 ft. 5 in. (165.10 cm); Pain 9/10; 18:00 BP 113 / 83; Pulse 89; Resp 18; Pulse Ox 98% on R/A; aj1 16:56 Body Mass Index 36.61 (99.79 kg, 165.10 cm) lp1 MDM: 17:07 Patient medically screened. jr8 18:28 Data reviewed: vital signs, nurses notes, radiologic studies, CT scan, plain films. jr8 Data interpreted: Pulse oximetry: on room air is 98 %. Interpretation: normal. Counseling: I had a detailed discussion with the patient and/or guardian regarding: the historical points, exam findings, and any diagnostic results supporting the discharge/admit diagnosis, radiology results, the need for outpatient follow up, a family practitioner, to return to the emergency department if symptoms worsen or persist or if there are any questions or concerns that arise at home. 03/08 17:26 Order name: CT Head C Spine [facility] 03/08 17:38 Order name: XRAY Hand LEFT 3 View [facility] 03/08 17:50 Order name: CT; Complete Time: 17:52 EDMS Administered Medications: No medications were administered Disposition: 18:47 Co-signature as Attending Physician, Donn Larson MD. rn Disposition: 03/08/19 18:30 Discharged to Home. Impression: Contusion of left hand, Superficial injury of head. - Condition is Stable. - Discharge Instructions: Hand Contusion, Head Injury, Adult, Hematoma. - Medication Reconciliation Form, Thank You Letter, Antibiotic Education, Prescription Opioid Use form. - Follow up: Private Physician; When: As needed; Reason: Recheck today's complaints, Continuance of care, Re-evaluation by your physician. - Problem is new. - Symptoms have improved. Signatures: Dispatcher [employer] EDMS Nedra Armas RN RN aj1 Donn Larson MD MD rn Pena, Laura, RN RN lp1 Alvaro Tolbert PA PA jr8 Corrections: (The following items were deleted from the chart) 18:43 18:30 03/08/2019 18:30 Discharged to Home. Impression: Contusion of left hand; aj1 Superficial injury of head. Condition is Stable. Forms are Medication Reconciliation Form, Thank You Letter, Antibiotic Education, Prescription Opioid Use. Follow up: Private Physician; When: As needed; Reason: Recheck today's complaints, Continuance of care, Re-evaluation by your physician. Problem is new. Symptoms have improved. jr8
[2019-03-08 19:58] VITALS: BP 113/83; O2SAT 98
[2019-03-08 20:00] VITALS: TEMP 98.4
--- NOTE | 2019-03-09 08:36 | RAD REPORT ---
EXAM DESCRIPTION: RAD - Hand Left 3 View - 03/08/2019 6:07 pm CLINICAL HISTORY: Hand pain, slip and fall COMPARISON: None. FINDINGS: No fracture, dislocation or periosteal reaction noted. No foreign body or other soft tissu e abnormality. IMPRESSION: Negative left hand examination.
== END 2019-03-08 18:43 | disposition home or self-care (01) ==
LOC: ER 16:44
DX: S60.222A Contusion of left hand, initial encounter (principal); S00.90XA Unspecified superficial injury of unspecified part of head, initial encounter; W01.0XXA Fall on same level from slipping, tripping and stumbling without subsequent striking against object, initial encounter; D64.9 Anemia, unspecified; F41.9 Anxiety disorder, unspecified; E05.90 Thyrotoxicosis, unspecified without thyrotoxic crisis or storm; Z91.040 Latex allergy status
CPT/HCPCS: 70450; 72125; 99284

== ENCOUNTER 2020-01-21 13:41 | Emergency (ER) | payer OTHER ==
--- OUTSIDE RECORDS SUMMARY | 2020-01-21 13:44 | XMS REPORT ---
:1975 Author Organization [facility] t Address [address] [place] [address] Dr. Hood [address] [place] [id number] Care Team Providers Name Role Phone Unavailable Unavailable Unavailable Payers Payer Name Policy Type Policy Number Effective Date Expiration D ate Problems This patient has no known problems. Allergies, Adverse Reactions, Alerts Allergy Allergy Status Severity Reaction(s) Onset Inactive Treating Ben giordano Name Type Date Date Clinician latex DA Active U 2011-11 00:00:0 0 Medications This patient has no known medications.
[2020-01-21 14:16] LABS: Urine Blood NEGATIVE (NEG); Urine Glucose NEGATIVE (NEG); Urine Protein NEGATIVE (NEG); Urine Specific Gravity <1.005 (1.005-1.030)
[2020-01-21 14:28] LABS: Urine Bacteria <20 /HPF (<20); Urine Culture Reflex Order NOT NEEDED; Urine RBC <5 /HPF (NONE SEEN)
--- NOTE | 2020-01-21 15:20 | RAD REPORT ---
EXAM DESCRIPTION: CT - Stone Protocol - 01/21/2020 2:54 pm CLINICAL HISTORY: Abdominal pain. COMPARISON: 2018 TECHNIQUE: Computed axial tomography of the abdomen pelvis was obtained without oral or IV contrast. Lack of IV and oral contrast limits evaluation of solid organs, bowel, and vessels. Coronal reformat cara images were obtained and reviewed. All CT scans are performed using dose optimization technique as appropriate and may include automated exposure control or mA/KV adjustment according to patient size. FINDINGS: A renal calculus is not seen. An ureteral calculus is not noted. A bladder calculus is not present. Fatty liver. Cholecystectomy Spleen, pancreas and adrenals appear grossly normal There is no evidence of diverticulitis. The appendix appears normal Diastases of the rectus abdominis muscle approximately 5.5 millimeters IMPRESSION: Negative for a genitourinary calculus
--- NOTE | 2020-01-21 15:26 | EDPHYS ---
Physician Documentation [facility] Name: Saba Zelaya Age: 44 yrs Sex: Female : 1975 Arrival Date: 01/21/2020 Time: 13:43 Bed 23 Private MD: ED Physician Neal Rodríguez HPI: 01/20 15:19 This 44 yrs old Female presents to ER via Ambulatory with complaints of UTI, kb Low Back Pain. 15:20 The patient has not experienced similar symptoms in the past. The patient has been kb recently seen by a physician:. 15:20 The patient complains of pain in the left flank. The pain does not radiate. Onset: The kb symptoms/episode began/occurred 5 day(s) ago. Modifying factors: The symptoms are alleviated by nothing. the symptoms are aggravated by palpation/percussion. Associated signs and symptoms: The patient has no apparent associated signs or symptoms. Severity of pain: At its worst the pain was moderate in the emergency department the pain is unchanged. Pt reports flank pain for 5 days. Was put on Bactrim for UTI via telemedicine visit . 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 - Social history:: Smoking status: Patient denies any tobacco usage or history of. Patient/guardian denies using alcohol, street drugs, tobacco products. ROS: 15:18 Constitutional: Negative for fever, chills, and weight loss, Cardiovascular: Negative kb for chest pain, palpitations, and edema, Respiratory: Negative for shortness of breath, cough, wheezing, and pleuritic chest pain, Abdomen/GI: Negative for abdominal pain, nausea, vomiting, diarrhea, and constipation, Back: Negative for injury and pain, MS/Extremity: Negative for injury and deformity, Skin: Negative for injury, rash, and discoloration, Neuro: Negative for headache, weakness, numbness, tingling, and seizure. 15:18 : Positive for flank pain. Exam: 15:19 Constitutional: This is a well developed, well nourished patient who is awake, alert, kb and in no acute distress. Head/Face: Normocephalic, atraumatic. Chest/axilla: Normal chest wall appearance and motion. Nontender with no deformity. No lesions are appreciated. Cardiovascular: Regular rate and rhythm with a normal S1 and S2. No gallops, murmurs, or rubs. Normal PMI, no JVD. No pulse deficits. Respiratory: Lungs have equal breath sounds bilaterally, clear to auscultation and percussion. No rales, rhonchi or wheezes noted. No increased work of breathing, no retractions or nasal flaring. Abdomen/GI: Soft, non-tender, with normal bowel sounds. No distension or tympany. No guarding or rebound. No evidence of tenderness throughout. Skin: Warm, dry with normal turgor. Normal color with no rashes, no lesions, and no evidence of cellulitis. MS/ Extremity: Pulses equal, no cyanosis. Neurovascular intact. Full, normal range of motion. Neuro: Awake and alert, GCS 15, oriented to person, place, time, and situation. Cranial nerves II-XII grossly intact. Motor strength 5/5 in all extremities. Sensory grossly intact. Cerebellar exam normal. Normal gait. 15:19 Back: CVA tenderness, that is mild, that is moderate, is noted on the left. Vital Signs: 14:08 BP 124 / 90; Pulse 92; Resp 18; Temp 98.1; Pulse Ox 97% ; Pain 9/10; ll1 14:30 BP 125 / 67; Pulse 83; Resp 18; Pulse Ox 96% on R/A; vc 15:30 BP 124 / 62; Pulse 80; Resp 18; Pulse Ox 100% on R/A; vc MDM: 14:02 Patient medically screened. kb 15:18 Data reviewed: vital signs, nurses notes. Data interpreted: Pulse oximetry: on room air kb is 96 %. Interpretation: normal. Counseling: I had a detailed discussion with the patient and/or guardian regarding: the historical points, exam findings, and any diagnostic results supporting the discharge/admit diagnosis, lab results, radiology results, the need for outpatient follow up, a family practitioner, to return to the emergency department if symptoms worsen or persist or if there are any questions or concerns that arise at home. 01/20 14:03 Order name: Urine Microscopic Only; Complete Time: 14:29 kb 01/20 14:07 Order name: Urine Dipstick--Ancillary (enter results); Complete Time: 14:26 bd 01/20 14:03 Order name: Urine Test (obtain specimen); Complete Time: 14:14 kb 01/20 14:03 Order name: Urine Dipstick-Ancillary (obtain specimen); Complete Time: 14:09 kb 01/20 14:14 Order name: CT Stone Protocol; Complete Time: 15:25 kb Administered Medications: No medications were administered Disposition: 19:10 Co-signature as Attending Physician, Neal Rodríguez MD Available for consultation in ps1 the ED. . Disposition: 01/21/20 15:26 Discharged to Home. Impression: Left flank pain. - Condition is Stable. - Prescriptions for Cyclobenzaprine 10 mg Oral Tablet - take 1 tablet by ORAL route every 8 hours As needed; 21 tablet. Diclofenac Sodium 75 mg Oral Tablet, Delayed Release (E.C.) - take 1 tablet by ORAL route 2 times per day As needed; 30 tablet. - Medication Reconciliation Form, Thank You Letter, Antibiotic Education, Prescription Opioid Use form. - Follow up: Emergency Department; When: As needed; Reason: Worsening of condition. Follow up: Private Physician; When: 2 - 3 days; Reason: Recheck today's complaints, Continuance of care, Re-evaluation by your physician. Signatures: Dispatcher [employer] EDAZ Janette Bernal, Neal Perry MD MD ps1 Herminia Jenkins RN RN Anne Norris RN RN ll1 Corrections: (The following items were deleted from the chart) 15:21 15:20 Pt reports flank pain for 5 days. Was put on Bactrim for UTI via telemedicine kb visit yesterday. kb 16:04 15:26 01/21/2020 15:26 Discharged to Home. Impression: Left flank pain. Condition is vc Stable. Forms are Medication Reconciliation Form, Thank You Letter, Antibiotic Education, Prescription Opioid Use. Follow up: Emergency Department; When: As needed; Reason: Worsening of condition. Follow up: Private Physician; When: 2 - 3 days; Reason: Recheck today's complaints, Continuance of care, Re-evaluation by your physician. kb
--- NOTE | 2020-01-21 15:26 | ER ---
Nurse's Notes [facility] Name: Saba Zelaya Age: 44 yrs Sex: Female : 1975 Arrival Date: 01/21/2020 Time: 13:43 Bed 23 Private MD: Diagnosis: Left flank pain Presentation: 01/20 14:08 Chief complaint: Patient states: Low back pain/abdominal pain with dysuria since ll1 Monday. + dysuria with hematuria. Saw teledoc. Has been on Bactrim DS since Monday. Dysuria is getting slightly better. Coronavirus screen: Proceed with normal triage. Patient denies a cough. Patient denies shortness of breath or difficulty breathing. Patient denies measured and/or subjective temperature greater than 100.4F prior to today's visit. Patient denies travel on a cruise ship or to a country the [facility] currently lists as an affected area. Patient denies contact with known and/or suspected case of COVID-19. Ebola Screen: Patient denies travel to an Ebola-affected area in the 21 days before illness onset. Initial Sepsis Screen: Does the patient meet any 2 criteria? HR > 90 bpm. No. Patient's initial sepsis screen is negative. Does the patient have a suspected source of infection? No. Patient's initial sepsis screen is negative. Risk Assessment: Do you want to hurt yourself or someone else? Patient reports no desire to harm self or others. Onset of symptoms was January 17, 2020. 14:08 Method Of Arrival: Ambulatory ll1 14:08 Acuity: LEONIDAS 4 ll1 14:13 Note Int. Domitila [id number] used for triage assessment. 1 Triage Assessment: 14:15 General: Appears in no apparent distress. uncomfortable, Behavior is calm, cooperative, vc appropriate for age. Pain: Complains of pain in low back and lower abdomen. 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 - Social history:: Smoking status: Patient denies any tobacco usage or history of. Patient/guardian denies using alcohol, street drugs, tobacco products. Screenin:14 Abuse screen: Denies threats or abuse. Nutritional screening: No deficits noted. vc Tuberculosis screening: No symptoms or risk factors identified. Fall Risk None identified. Assessment: 14:15 General: Appears in no apparent distress. uncomfortable, Behavior is calm, cooperative, vc appropriate for age. Pain:. Neuro: Level of Consciousness is awake, alert, Oriented to person, place, time, situation, Appropriate for age. Cardiovascular: Capillary refill < 3 seconds Patient's skin is warm and dry. Respiratory: Airway is patent Respiratory effort is even, unlabored, Respiratory pattern is regular, symmetrical. GI: No signs and/or symptoms were reported involving the gastrointestinal system. : Urine is clear, Reports pain lower quadrant(s) in lower back She is currently being treated for a UTI, she is taking Bactrim. EENT: No signs and/or symptoms were reported regarding the EENT system. Derm: Skin is intact, is healthy with good turgor, Skin temperature is warm. Musculoskeletal: Circulation, motion, and sensation intact. Range of motion: intact in all extremities. 14:46 Reassessment: Patient appears in no apparent distress at this time. Patient and/or vc family updated on plan of care and expected duration. Pain level reassessed. Patient is alert, oriented x 3, equal unlabored respirations, skin warm/dry/pink. 14:50 Reassessment: Patient to CT via stretcher. vc 15:02 Reassessment: Patient back from CT via stretcher. vc 15:15 Reassessment: Patient appears in no apparent distress at this time. Patient and/or vc family updated on plan of care and expected duration. Pain level reassessed. Patient is alert, oriented x 3, equal unlabored respirations, skin warm/dry/pink. Vital Signs: 14:08 BP 124 / 90; Pulse 92; Resp 18; Temp 98.1; Pulse Ox 97% ; Pain 9/10; ll1 14:30 BP 125 / 67; Pulse 83; Resp 18; Pulse Ox 96% on R/A; vc 15:30 BP 124 / 62; Pulse 80; Resp 18; Pulse Ox 100% on R/A; vc ED Course: 13:43 Patient arrived in ED. ag5 13:55 Herminia Jenkins, RN is Primary Nurse. vc 14:02 Janette Bernal FNP-C [facility] kb 14:02 Neal Rodríguez MD is Attending Physician. kb 14:10 Triage completed. ll1 14:12 Arm band placed on Patient placed in an exam room, on a stretcher. ll1 14:16 Patient has correct armband on for positive identification. Bed in low position. Side vc rails up X 1. Pulse ox on. NIBP on. 14:49 Warm blanket given. vc 14:54 CT Stone Protocol In Process Unspecified. EDMS 15:30 No provider procedures requiring assistance completed. Patient did not have IV access vc during this emergency room visit. Administered Medications: No medications were administered Outcome: 15:26 Discharge ordered by . kb 15:34 Patient left the ED. vc 15:34 Discharged to home ambulatory. vc 15:34 Condition: good 15:34 Discharge instructions given to patient, Instructed on discharge instructions, follow up and referral plans. medication usage, Demonstrated understanding of instructions, follow-up care, medications, Prescriptions given X 2. Signatures: Dispatcher [employer] EDMD Janette Bernal FNP-C FNP-Deepika Copeland ag5 Herminia Jenkins RN RN Anne Norris RN RN ll1 Corrections: (The following items were deleted from the chart) 16:45 16:04 Patient left the ED. vc vc
[2020-01-21 16:19] VITALS: TEMP 98.1
[2020-01-21 16:20] VITALS: BP 125/67; O2SAT 96
== END 2020-01-21 16:04 | disposition home or self-care (01) ==
LOC: ER 13:41
DX: R10.9 Unspecified abdominal pain (principal); Z88.1 Allergy status to other antibiotic agents; Z91.040 Latex allergy status; Z91.048 Other nonmedicinal substance allergy status
CPT/HCPCS: 74176; 76377; 81003; 81015; 99283

== ENCOUNTER 2020-11-07 14:06 | Emergency (ER) | payer OTHER ==
--- OUTSIDE RECORDS SUMMARY | 2020-11-07 14:09 | XMS REPORT | Continuity of Care Document ---
:1975 Author Organization [facility] Care Team Providers Name Role Phone [facility] Unavailable Un available Problems Problem Status Onset Classification Date Comments Sourc e Date Reported R76.9 - ABNORMAL Active 07/31/20 [facility] [address] [place] Medications No Data Provided for This Section Allergies, Adverse Reactions, Alerts No Known Medication Allergies Immunizations No Data Provided for This Section Results No Data Provided for This Section Pathology Reports No Data Provided for This Section Diagnostic Reports Report Value Date Source Hand 2 views Bilateral PROCEDURE INFORMATION: 07/31/2019 [facility] [place] DX Exam: XR Right Hand Exam date and time: 07/31/2019 12:11 PM Clinical history: 44 years old, female; Abnormal immunological finding in serum, unspecified; Additional info: /r76.9 abno rmal immunological finding in serum, unspecified TECHNIQUE: Imaging protocol: XR Right hand. Views: 1 or 2 views. Frontal Lateral COMPARISON: No relevant prior studies available. FINDINGS: Bones/joints: There is normal alignment without fractures or dislocations. The joints are unremarkable. No bony erosions. The v isualized wrist region is grossly unremarkable. Soft tissues: No radiopaque foreign bodies. Notes: If there is further concern, candelario mmend follow-up radiographs or MRI for complete assessment. IMPRESSION: No acute osseus abnormality. PROCEDURE INFORMATION: Exam: XR Left Hand Exam date and time: 07/31/2019 12:11 PM Clinical history: 44 years old, female; Abnormal immunological finding in serum, unspecified; Additional info: /r76.9 abno rmal immunological finding in serum, unspecified TECHNIQUE: Imaging protocol: XR Left hand. Views: 1 or 2 views. Frontal Lateral COMPARISON: No relevant prior studies available. FINDINGS: Bones/joints: There is normal alignment without fractures or dislocations. The joints are unremarkable. No bony erosions. The v isualized wrist region is grossly unremarkable. Soft tissues: No radiopaque foreign bodies. Notes: If there is further concern, candelario mmend follow-up radiographs or MRI for complete assessment. IMPRESSION: No acute osseus abnormality. Damien Elkins MD On 07/31/2019 16:23:59; V [id number] Chest 2 views DX PROCEDURE INFORMATION: 07/31/2019 [facility] [place] Exam: XR Chest, 2 Views Exam date and time: 07/31/2019 12:11 PM Clinical history: 44 years old, female; Abnormal immunological finding in serum, unspecified; Additional info: /r76.9 abno rmal immunological finding in serum, unspecified TECHNIQUE: Imaging protocol: XR of the chest Views: 2 views. PA and Lateral COMPARISON: No relevant prior studies available. FINDINGS: Lungs: Lungs are clear. Pulmonary vasculature is within normal limits. Pleural space: Unremarkable. No pleural effusion . No pneumothorax. Heart/Mediastinum: No cardiomegaly. Bones/joints: No acute abnormality seen. IMPRESSION: No radiographic evidence of acutre cardiopulmona ry process. Yony Bullock MD On 07/31/2019 17:18:17; MATILDE [id number] Consultation Notes No Data Provided for This Section Discharge Summaries No Data Provided for This Section History and Physicals No Data Provided for This Section Vital Signs No Data Provided for This Section Encounters Location Location Encounter Encounter Reason Attending ADM [place] Stat Source Details Type Number For Provider Date Date Visit [facility] Outpt Diag [id number] [place] 07/31 08/01 [facility] [place] [facility] [place] Procedures No Data Provided for This Section Assessment and Plan No Data Provided for This Section Plan of Care No Data Provided for This Section Social History Social History Date Source Social History TypeResponse 08/01/2019 [facility] [place] Family History No Data Provided for This Section Advance Directives No Data Provided for This Section Functional Status No Data Provided for This Section
--- OUTSIDE RECORDS SUMMARY | 2020-11-07 14:09 | XMS REPORT | Continuity of Care Document ---
:1975 Author Organization [facility] t Address [address] [place] [id number] Care Team Providers Name Role Phone Lori Attending Clinician Payers Payer Name Policy Type Policy Number Effective Date Expiration Date S ource Problems Condition Condition Condition Status Onset Resolution Last Treating Co mments Source Name Details Category Date Date Treatment Clinician Date R76.9 - Diagnosis Active 2018-092019-07-31 Me moria ABNORMAL 1-13 11:12:00 l IMMUNOLOGI R76.9 - 00:01: [facility] ANNABELLE ABNORMAL 00 FINDING IMMUNOLOGI ANNABELLE FINDING Active 07/31/2019 JACQUES Ding Allergies, Adverse Reactions, Alerts Allergy Allergy Status Severity Reaction(s) Onset Inactive Treating Comm ents Source Name Type Date Date Clinician latex DA Active U 2012-0 [facility] [place] Medications This patient has no known medications. Procedures This patient has no known procedures. Encounters Start End Encounter Admission Attending Care Care Encounter Source Date/Time Date/Time Type Type Clinicians Facility Department ID 2019-07-31 2019-07-31 Outpatient AVNI Sandoval YOLANDA [id number] 11:02:00 23:59:00 Nilanjana 00 Results This patient has no known results.
[2020-11-07 14:50] LABS: Urine Blood NEGATIVE (NEG); Urine Glucose NEGATIVE (NEG); Urine Protein 1+ (NEG)
[2020-11-07 14:58] LABS: Urine Bacteria 20-50 /HPF (<20); Urine RBC NONE SEEN /HPF (NONE SEEN)
[2020-11-07 15:07] LABS: Absolute Lymphocytes (CBC) 1.9 K/uL (0.7-4.9); Basophils % 0.9 % (0-1.3); Hematocrit 36.1 % (36.0-45.0); Lymphocytes % 24.6 % (15.3-44.8); MPV 7.4 fL (7.6-11.3); RBC Red Blood Cell Count 4.69 M/uL (3.86-4.86)
[2020-11-07 15:29] LABS: Potassium 3.8 mmol/L (3.5-5.1); Thyroid Stimulating Hormone 0.752 uIU/mL (0.360-3.740)
--- NOTE | 2020-11-07 15:56 | ER ---
Nurse's Notes [facility] Name: Saba Zelaya Age: 45 yrs Sex: Female : 1975 Arrival Date: 11/07/2020 Time: 14:08 Bed 8 Private MD: Diagnosis: Malaise and fatigue Presentation: 11/07 14:21 Chief complaint: Patient states: has been feeling weak and dizzy off and on for 2 iw weeks, has had thyroid issues and problems with potassium in the past. Coronavirus screen: At this time, the client does not indicate any symptoms associated with coronavirus-19. Ebola Screen: Patient negative for fever greater than or equal to 101.5 degrees Fahrenheit, and additional compatible Ebola Virus Disease symptoms Patient denies exposure to infectious person. Patient denies travel to an Ebola-affected area in the 21 days before illness onset. No symptoms or risks identified at this time. Risk Assessment: Do you want to hurt yourself or someone else? Patient reports no desire to harm self or others. Onset of symptoms was October 25, 2020. 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 - Social history:: Smoking status: Patient denies any tobacco usage or history of. - Family history:: not pertinent. - Hospitalizations: : No recent hospitalization is reported. Screenin:30 Abuse screen: Denies threats or abuse. Denies injuries from another. Nutritional jl7 screening: No deficits noted. Tuberculosis screening: No symptoms or risk factors identified. Fall Risk IV access (20 points). Total Timmons Fall Scale indicates No Risk (0-24 pts). Assessment: 14:30 General: Appears in no apparent distress. uncomfortable, Behavior is calm, cooperative, jl7 appropriate for age. Pain: Denies pain. Neuro: Level of Consciousness is awake, alert, obeys commands, Oriented to person, place, time, situation. Cardiovascular: Patient's skin is warm and dry. Respiratory: Airway is patent Respiratory effort is even, unlabored, Respiratory pattern is regular, symmetrical. Derm: Skin is pink, warm \T\ dry. 15:30 Reassessment: Patient appears in no apparent distress at this time. No changes from jl7 previously documented assessment. Patient and/or family updated on plan of care and expected duration. Pain level reassessed. Patient is alert, oriented x 3, equal unlabored respirations, skin warm/dry/pink. Vital Signs: 14:31 BP 136 / 73; Pulse 90; Resp 16; Temp 97.6; Pulse Ox 100% on R/A; Weight 99.79 kg; iw Height 5 ft. 5 in. (165.10 cm); 15:41 BP 113 / 62; Pulse 92; Resp 15; Pulse Ox 97% ; Pain 0/10; jl7 14:31 Body Mass Index 36.61 (99.79 kg, 165.10 cm) iw ED Course: 14:08 Patient arrived in ED. as 14:12 Donn Larson MD is Attending Physician. rn 14:20 Michael Mcdonnell, ABE is Primary Nurse. jl7 14:23 Triage completed. iw 14:25 Arm band placed on. iw 14:30 Patient has correct armband on for positive identification. Placed in gown. Bed in low jl7 position. Call light in reach. Side rails up X 1. library monitor on. Pulse ox on. NIBP on. Warm blanket given. 14:45 Initial lab(s) drawn, by nj, sent to lab. Urine collected: clean catch specimen, jl7 cloudy, EKG done, by ED staff, reviewed by Donn Larson MD. Inserted saline lock: 20 gauge in right antecubital area, using aseptic technique. Blood collected. 16:19 No provider procedures requiring assistance completed. IV discontinued, intact, jl7 bleeding controlled, No redness/swelling at site. Pressure dressing applied. Administered Medications: No medications were administered Outcome: 15:55 Discharge ordered by . rn 16:19 Discharged to home ambulatory. jl7 16:19 Condition: stable 16:19 Discharge instructions given to patient, Instructed on discharge instructions, follow up and referral plans. Demonstrated understanding of instructions, follow-up care. 16:20 Patient left the ED. jl7 Signatures: Lisa Pinon Irene, RN RN Donn Robert MD MD rn Kecia, Michael, ABE RN jl7
--- NOTE | 2020-11-07 15:56 | EDPHYS ---
Physician Documentation [facility] Name: Saba Zelaya Age: 45 yrs Sex: Female : 1975 Arrival Date: 11/07/2020 Time: 14:08 Bed 8 Private MD: ED Physician Donn Larson HPI: 11/07 14:25 This 45 yrs old Female presents to ER via Ambulatory with complaints of Near rn Syncope. 14:25 This 45 yrs old Female presents to ER via Ambulatory with complaints of rn generalized weakness and fatigue. 14:26 Reports "long time" of intermittent fatigue and generalized weakness, worse over last 2 rn weeks. Reports hx of thyroid problems but then corrected and doesn't take anything for it. Reports hx of gastritis but no blood in stool or dark stool. No fever/cough/sob/abd pain/vomiting/diarrhea. . Onset: The symptoms/episode began/occurred 2 week(s) ago. Severity of symptoms: At their worst the symptoms were mild in the emergency department the symptoms are unchanged. The patient has experienced similar episodes in the past. The patient has not recently seen a physician. 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 - Social history:: Smoking status: Patient denies any tobacco usage or history of. - Family history:: not pertinent. - Hospitalizations: : No recent hospitalization is reported. ROS: 14:26 Constitutional: Negative for fever, chills, and weight loss, Eyes: Negative for injury, rn pain, redness, and discharge, Neck: Negative for injury, pain, and swelling, Cardiovascular: Negative for chest pain, palpitations, and edema, Respiratory: Negative for shortness of breath, cough, wheezing, and pleuritic chest pain, Abdomen/GI: Negative for abdominal pain, nausea, vomiting, diarrhea, and constipation, Back: Negative for injury and pain, MS/Extremity: Negative for injury and deformity, Skin: Negative for injury, rash, and discoloration, Neuro: Negative for headache, numbness, tingling, and seizure. Exam: 14:26 Constitutional: Overweight woman, no acute distress Head/Face: Normocephalic, rn atraumatic. ENT: MMM Cardiovascular: Regular rate and rhythm. No pulse deficits. Respiratory: No increased work of breathing, no retractions or nasal flaring. Abdomen/GI: soft, non-tender Skin: Warm, dry MS/ Extremity: Pulses equal, no cyanosis. Neurovascular intact. Full, normal range of motion. Equal circumference. Neuro: Awake and alert, GCS 15, oriented to person, place, time, and situation. Cranial nerves II-XII grossly intact. Motor strength 5/5 in all extremities. Sensory grossly intact. Cerebellar exam normal. Normal gait. 15:04 ECG was reviewed by the Attending Physician. rn Vital Signs: 14:31 BP 136 / 73; Pulse 90; Resp 16; Temp 97.6; Pulse Ox 100% on R/A; Weight 99.79 kg; iw Height 5 ft. 5 in. (165.10 cm); 15:41 BP 113 / 62; Pulse 92; Resp 15; Pulse Ox 97% ; Pain 0/10; jl7 14:31 Body Mass Index 36.61 (99.79 kg, 165.10 cm) iw MDM: 14:12 Patient medically screened. rn 15:54 Differential Diagnosis hypothyroidism, UTI, dehydration, anemia, depression, anxiety, rn electrolyte disorder. Data reviewed: vital signs, nurses notes, lab test result(s), EKG, and as a result, I will discharge patient. Counseling: I had a detailed discussion with the patient and/or guardian regarding: the historical points, exam findings, and any diagnostic results supporting the discharge/admit diagnosis, lab results, the need for outpatient follow up, to return to the emergency department if symptoms worsen or persist or if there are any questions or concerns that arise at home. Special discussion: I discussed with the patient/guardian in detail that at this point there is no indication for admission to the hospital. It is understood, however, that if the symptoms persist or worsen the patient needs to return immediately for re-evaluation. Based on the history and exam findings, there is no indication for further emergent testing or inpatient evaluation. I discussed with the patient/guardian the need to see the primary care provider for further evaluation of the symptoms. 11/07 14:25 Order name: CBC with Diff; Complete Time: 15: 11/07 14:25 Order name: Basic Metabolic Panel; Complete Time: 15:40 11/07 14:25 Order name: Magnesium; Complete Time: 15:40 11/07 14:25 Order name: Urine Microscopic Only; Complete Time: 15: 11/07 14:25 Order name: TSH; Complete Time: 15: 11/07 14:25 Order name: T4 Free; Complete Time: 15:40 11/07 14:25 Order name: IV Start; Complete Time: 15:42 11/07 14:25 Order name: Urine Dipstick-Ancillary (obtain specimen); Complete Time: 15:42 11/07 14:25 Order name: EKG; Complete Time: 14: 11/07 14:25 Order name: EKG - Nurse/Tech; Complete Time: 15:42 11/07 14:46 Order name: Urine Dipstick--Ancillary (enter results); Complete Time: 15: 11/07 14:46 Order name: Urine --Ancillary (enter results); Complete Time: 15: 11/07 14:58 Order name: Urine Culture EDNE EC:04 Rate is 84 beats/min. Rhythm is regular. QRS [place] is Normal. NE interval is normal. QRS rn interval is normal. QT interval is normal. No Q waves. T waves are Normal. No ST changes noted. Clinical impression: Normal ECG. Interpreted by me. Reviewed by me. Administered Medications: No medications were administered Disposition: 11/07/20 15:55 Discharged to Home. Impression: Malaise and fatigue. - Condition is Stable. - Discharge Instructions: Fatigue, Generalized Anxiety Disorder. - Medication Reconciliation Form, Thank You Letter, Antibiotic Education, Prescription Opioid Use form. - Follow up: Private Physician; When: As needed; Reason: Recheck today's complaints, Re-evaluation by your physician. - Problem is an ongoing problem. - Symptoms are unchanged. Signatures: Dispatcher [employer] EDMS Babs Ugarte, RN Donn Sheehan MD MD rn Leal, Jahala, RN RN jl7 Corrections: (The following items were deleted from the chart) 16:20 15:55 11/07/2020 15:55 Discharged to Home. Impression: Malaise and fatigue. Condition jl7 is Stable. Forms are Medication Reconciliation Form, Thank You Letter, Antibiotic Education, Prescription Opioid Use. Follow up: Private Physician; When: As needed; Reason: Recheck today's complaints, Re-evaluation by your physician. Problem is an ongoing problem. Symptoms are unchanged. rn
[2020-11-07 16:28] VITALS: BP 113/62; O2SAT 97
[2020-11-07 16:29] VITALS: TEMP 97.6
== END 2020-11-07 16:20 | disposition home or self-care (01) ==
LOC: ER 14:06
DX: R53.81 Other malaise (principal); R53.83 Other fatigue; Z91.040 Latex allergy status; Z91.048 Other nonmedicinal substance allergy status
CPT/HCPCS: 36415; 80048; 81003; 81015; 81025; 83735; 84439; 84443; 85025; 87086; 87088; 99284

== ENCOUNTER 2021-01-29 17:33 | Emergency (ER) | payer OTHER ==
--- OUTSIDE RECORDS SUMMARY | 2021-01-29 17:36 | XMS REPORT | Continuity of Care Document ---
:1975 Author Organization [facility] t Address [address] [place] [address] Care Team Providers Name Role Phone Lori [...] Date Date Clinician latex DA Active U 2011-0 [facility] [place] Medications This patient has no known medications. Procedures This patient has no known procedures. Encounters Start End Encounter Admission Attending Care Care Encounter Source Date/Time Date/Time Type Type Clinicians Facility Department ID 2019-07-31 2019-07-31 Outpatient AVIN Sandoval YOLANDA [id number] 11:02:00 23:59:00 Nilanjana 00 Results This patient has no known results.
[2021-01-29 18:37] LABS: Absolute Lymphocytes (CBC) 1.8 K/uL (0.7-4.9); Basophils % 1.1 % (0-1.3); Hematocrit 36.4 % (36.0-45.0); Lymphocytes % 24.6 % (15.3-44.8); MPV 7.3 fL (7.6-11.3); Protime INR 0.99; RBC Red Blood Cell Count 4.76 M/uL (3.86-4.86)
[2021-01-29] MEDS ORDERED: ASPIRIN 81 MG CHEWABLE TABLET ONE (18:43)
[2021-01-29 18:51] LABS: ALT/SGPT 74 U/L (12-78); AST/SGOT 45 U/L (15-37); Albumin 3.5 g/dL (3.4-5.0); Alkaline Phosphatase 163 U/L (45-117); BUN Blood Urea Nitrogen 9 mg/dL (7-18); Bicarbonate 29 mmol/L (21-32); Bilirubin Direct < 0.1 mg/dL (0-0.2); Bilirubin Total 0.2 mg/dL (0.2-1.0); Glucose Level 140 mg/dL (74-106); Lipase 134 U/L (73-393); Magnesium 2.3 mg/dL (1.8-2.4); NT PRO-BNP 33 pg/mL (<125); Potassium 3.8 mmol/L (3.5-5.1); Sodium Level 141 mmol/L (136-145); Troponin (Emerg Dept Use Only) < 0.02 ng/mL (0.0-0.045)
[2021-01-29] MEDS ORDERED: ONDANSETRON 4 MG/2 ML VIAL ONE (18:55)
[2021-01-29] MEDS ORDERED: MORPHINE 4 MG/ML SYR ONE (18:55)
[2021-01-29] MEDS ORDERED: NA CHLORIDE 0.9% 1,000 ML ONE (18:56)
[2021-01-29] MEDS ORDERED: FAMOTIDINE 20 MG/2 ML VIAL IV ONE (18:56)
[2021-01-29] MEDS ORDERED: LORazepam 2 MG/ML VIAL ONE (19:26)
--- NOTE | 2021-01-29 19:55 | RAD REPORT ---
EXAM DESCRIPTION: Rita Single View01/29/2021 6:39 pm CLINICAL HISTORY: Chest pain COMPARISON: 2018 FINDINGS: The lungs appear clear of acute infiltrate. The heart is normal size IMPRESSION: No acute abnormalities displayed
--- NOTE | 2021-01-29 19:55 | RAD REPORT ---
EXAM DESCRIPTION: CT - Angio Aorta For Dissection - 01/29/2021 7:18 pm CLINICAL HISTORY: . Chest and abdominal pain COMPARISON: 2019 TECHNIQUE: Computed tomography angiography of the chest, abdomen pelvis were obtained. 100 cc Isovue 370 was administered intravenously. Coronal and sagittal reconstruction were performed. MIP 3D reconstruction was performed All CT scans are performed using dose optimization technique as appropriate and may include automated exposure control or mA/KV adjustment according to patient size. FINDINGS: An aortic dissection is not seen. An aortic aneurysm is not displayed. The celiac, SMA and UYEN are patent . A lung consolidation is not present. A pericardial effusion is not seen. A pleural effusion is not n oted. Fatty liver Cholecystectomy. Spleen, pancreas adrenals kidneys demonstrate no significant abnormality. Diastases of the rectus abdominis muscles 6 centimeters. The appendix is normal. There no evidence diverticulitis. IMPRESSION: Negative for an aortic dissection.
[2021-01-29 19:56] LABS: Urine Blood Negative (Negative); Urine Glucose Negative (Negative); Urine Protein Negative (Negative)
--- NOTE | 2021-01-29 20:28 | ER ---
Nurse's Notes [facility] Name: Saba Zelaya Age: 45 yrs Sex: Female : 1975 Arrival Date: 01/29/2021 Time: 17:35 Bed 20 Private MD: GEORGINA SPEARS Diagnosis: Abdominal tenderness;Other chest pain-non cardiac;Gastro-esophageal reflux disease;Obesity, unspecified Presentation: 01/29 17:53 Chief complaint: Spouse and/or significant other states: "we were seen by her doctor rajendra today that was going to give her some pain medication and sent her for an EKG here and we did that in no time at all, but the results did not get sent to the Dr. so she is in tears now because of the pain.". Coronavirus screen: At this time, the client does not indicate any symptoms associated with coronavirus-19. Ebola Screen: Patient negative for fever greater than or equal to 101.5 degrees Fahrenheit, and additional compatible Ebola Virus Disease symptoms. Initial Sepsis Screen: Does the patient meet any 2 criteria? No. Patient's initial sepsis screen is negative. Does the patient have a suspected source of infection? No. Patient's initial sepsis screen is negative. Risk Assessment: Do you want to hurt yourself or someone else? Patient reports no desire to harm self or others. Onset of symptoms was January 27, 2021. 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 - Social history:: Smoking status: unknown. Screenin:58 Abuse screen: Denies threats or abuse. Nutritional screening: No deficits noted. ll1 Tuberculosis screening: No symptoms or risk factors identified. Fall Risk IV access (20 points). Gait- Weak (10 pts.). Total Timmons Fall Scale indicates Low Risk Score (25-44 pts). Fall prevention measures have been instituted. Side Rails Up X 2 Placed close to Nursing Station Frequent Obs/Assesments occuring Family Present and informed to notify staff if they need to leave bedside As available Patient and Family Educated on Fall Prevention Program and strategies. Assessment: 18:05 General: Appears uncomfortable, Behavior is calm, cooperative, appropriate for age. ll1 Pain: Complains of pain in mid chest and mid back Pain radiates to mid back Quality of pain is described as aching, Pain began 2-3 days ago. Neuro: No deficits noted. Cardiovascular: Reports chest pain, shortness of breath, Heart tones S1 S2 Capillary refill < 3 seconds Clubbing of nail beds is absent JVD is absent Patient's skin is warm and dry. Rhythm is regular. Respiratory: Reports shortness of breath Airway is patent Trachea midline Respiratory effort is even, unlabored, Respiratory pattern is regular, symmetrical, Breath sounds are clear bilaterally. Musculoskeletal: Circulation, motion, and sensation intact. Capillary refill < 3 seconds, Range of motion: intact in all extremities, Reports pain in mid back. 19:22 Reassessment: Patient and/or family updated on plan of care and expected duration. Pain ad5 level reassessed. Patient is alert, oriented x 3, equal unlabored respirations, skin warm/dry/pink. Received care of pt at this time. Pt returned from CT, reattached to with pulse ox and BP. IVF infusing without difficulty. Family remains at bedside. Bed low and locked, bedrails x 2, call light within reach. NAD noted, will continue to monitor. 20:24 Reassessment: Patient and/or family updated on plan of care and expected duration. Pain ad5 level reassessed. Patient is alert, oriented x 3, equal unlabored respirations, skin warm/dry/pink. Pt up to restroom, ambulatory with steady gait. Repositioned back into stretcher for comfort. S.O. remains at bedside. Denies needs or c/o at this time. Will continue to monitor. Vital Signs: 17:55 BP 130 / 73; Pulse 93; Resp 19 S; Temp 98.0(TE); Pulse Ox 98% on R/A; Weight 108.86 kg jd3 (R); Height 5 ft. 5 in. (165.10 cm) (R); Pain 9/10; 19:30 BP 110 / 56; Pulse 89; Resp 15 S; Pulse Ox 100% on 2 lpm NC; Pain 2/10; ad5 20:30 BP 107 / 70; Pulse 99; Resp 16 S; Pulse Ox 96% on R/A; ad5 17:55 Body Mass Index 39.94 (108.86 kg, 165.10 cm) j ED Course: 17:35 Patient arrived in ED. am2 17:36 GEORGINA SPEARS is Private Physician. am2 17:51 Fletcher Jackson MD is Attending Physician. siena 17:55 Triage completed. jd3 17:56 Arm band placed on. jd3 17:57 Anne Carballo, ABE is Primary Nurse. ll1 18:21 No provider procedures requiring assistance completed. Initial lab(s) drawn, by me, ca1 sent to lab. Inserted saline lock: 20 gauge in right antecubital area, using aseptic technique. Blood collected. Patient maintains SpO2 saturation greater than 95% on room air. 18:41 XRAY Chest (1 view) In Process Unspecified. EDMS 18:58 Patient has correct armband on for positive identification. Bed in low position. Call ll1 light in reach. Side rails up X 1. 19:18 CT Aorta for Dissection In Process Unspecified. EDMS 19:30 hall monitor on. Pulse ox on. NIBP on. ad5 20:27 Alvaro Tolbert PA is PHCP. jr8 20:28 GEORGINA SPEARS is Referral Physician. jr8 20:28 Ehsan Sifuentes MD is Referral Physician. jr8 20:28 Devon Jackson MD is Referral Physician. jr8 20:47 IV discontinued, intact, bleeding controlled, No redness/swelling at site. Pressure ad5 dressing applied. Administered Medications: 18:34 Drug: Aspirin Chewable Tablet 324 mg Route: PO; ll1 18:48 Drug: NS 0.9% 500 ml Route: IV; Rate: bolus; Site: right antecubital; ll1 20:23 Follow up: IV Status: Completed infusion; IV Intake: 500ml ad5 18:49 Drug: morphine 2 mg {Note: couldn't tolerate 4mg, only gave 2mg IV..} Route: IVP; Site: ll1 right antecubital; 20:24 Follow up: Response: No adverse reaction; Pain is decreased; RASS: Drowsy (-1) ad5 18:49 Drug: Zofran (Ondansetron) 4 mg Route: IVP; Site: right antecubital; ll1 20:24 Follow up: Response: No adverse reaction; Nausea is decreased ad5 18:50 Drug: Pepcid (famotidine) 20 mg Route: IVP; Site: right antecubital; ll1 20:24 Follow up: Response: No adverse reaction ad5 19:09 Drug: Ativan (LORazepam) 1 mg Route: IVP; Site: right antecubital; ll1 20:23 Follow up: Response: No adverse reaction; Anxiety decreased ad5 20:23 Drug: NS 0.9% 1000 ml Route: IV; Rate: 125 ml/hr; Site: right antecubital; ad5 20:45 Follow up: IV Status: Completed infusion; IV Intake: 500ml ad5 20:38 Drug: Bentyl (dicyclomine) 20 mg Route: PO; ad5 Intake: 20:23 IV: 500ml; Total: 500ml. ad5 20:45 IV: 500ml; Total: 1000ml. ad5 Outcome: 20:28 Discharge ordered by . jr8 20:46 Discharged to home via wheelchair, with significant other. ad5 20:46 Condition: stable 20:46 Discharge instructions given to patient, significant other, Instructed on discharge instructions, follow up and referral plans. medication usage, Demonstrated understanding of instructions, follow-up care, medications. 20:48 Patient left the ED. ad5 Signatures: Dispatcher [employer] EDMS Fletcher Jackson MD MD cha Roszak, Josh, PA PA jr8 Jess Mcneal Jonathon, RN RN jd3 Kyara Means RN RN ca1 Anne Carballo RN RN ll1 Hardy Hodge ad5
--- NOTE | 2021-01-29 20:28 | EDPHYS ---
Physician Documentation [facility] Name: Saba Zelaya Age: 45 yrs Sex: Female : 1975 Arrival Date: 01/29/2021 Time: 17:35 Bed 20 Private MD: GEORGINA SPEARS ED Physician Fletcher Jackson HPI: 01/29 18:29 This 45 yrs old Female presents to ER via Ambulatory with complaints of Chest siena Pain, Back Pain. 18:29 The patient or guardian reports chest pain that is located primarily in the epigastric siena area, anterior chest wall, bilaterally. Onset: 3 day(s) ago. The pain radiates to. Associated signs and symptoms: Pertinent positives: abdominal pain. The chest pain is described as a pressure, sharp. Duration: The patient or guardian reports a single episode, that is still ongoing, and worsening. Modifying factors: The symptoms are alleviated by nothing. the symptoms are aggravated by cough, deep breath, movement. Severity of pain: At its worst the pain was moderate in the emergency department the pain is actually worse. The patient has experienced a previous episode, last year. 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 - Social history:: Smoking status: unknown. ROS: 18:30 Constitutional: Negative for fever, chills, and weight loss, Eyes: Negative for injury, siena pain, redness, and discharge, ENT: Negative for injury, pain, and discharge, Neck: Negative for injury, pain, and swelling, Cardiovascular: Negative for chest pain, palpitations, and edema, Respiratory: Negative for shortness of breath, cough, wheezing, and pleuritic chest pain, : Negative for injury, bleeding, discharge, and swelling, MS/Extremity: Negative for injury and deformity, Skin: Negative for injury, rash, and discoloration, Neuro: Negative for headache, weakness, numbness, tingling, and seizure, Psych: Negative for depression, anxiety, suicide ideation, homicidal ideation, and hallucinations, Allergy/Immunology: Negative for hives, rash, and allergies, Endocrine: Negative for neck swelling, polydipsia, polyuria, polyphagia, and marked weight changes, Hematologic/Lymphatic: Negative for swollen nodes, abnormal bleeding, and unusual bruising. 18:30 Abdomen/GI: Positive for abdominal pain, abdominal cramps, abdominal distension, of the epigastric area, right upper quadrant and left upper quadrant. Exam: 18:30 Constitutional: This is a well developed, well nourished patient who is awake, alert, siena and in no acute distress. Head/Face: Normocephalic, atraumatic. Eyes: Pupils equal round and reactive to light, extra-ocular motions intact. Lids and lashes normal. Conjunctiva and sclera are non-icteric and not injected. Cornea within normal limits. Periorbital areas with no swelling, redness, or edema. ENT: Nares patent. No nasal discharge, no septal abnormalities noted. Tympanic membranes are normal and external auditory canals are clear. Oropharynx with no redness, swelling, or masses, exudates, or evidence of obstruction, uvula midline. Mucous membranes moist. Neck: Trachea midline, no thyromegaly or masses palpated, and no cervical lymphadenopathy. Supple, full range of motion without nuchal rigidity, or vertebral point tenderness. No Meningismus. Chest/axilla: Normal chest wall appearance and motion. Nontender with no deformity. No lesions are appreciated. Cardiovascular: Regular rate and rhythm with a normal S1 and S2. No gallops, murmurs, or rubs. Normal PMI, no JVD. No pulse deficits. Respiratory: Lungs have equal breath sounds bilaterally, clear to auscultation and percussion. No rales, rhonchi or wheezes noted. No increased work of breathing, no retractions or nasal flaring. Back: No spinal tenderness. No costovertebral tenderness. Full range of motion. Skin: Warm, dry with normal turgor. Normal color with no rashes, no lesions, and no evidence of cellulitis. MS/ Extremity: Pulses equal, no cyanosis. Neurovascular intact. Full, normal range of motion. Neuro: Awake and alert, GCS 15, oriented to person, place, time, and situation. Cranial nerves II-XII grossly intact. Motor strength 5/5 in all extremities. Sensory grossly intact. Cerebellar exam normal. Normal gait. Psych: Awake, alert, with orientation to person, place and time. Behavior, mood, and affect are within normal limits. 18:30 ECG was reviewed by the Attending Physician. 18:30 Abdomen/GI: Inspection: abdomen appears normal, Bowel sounds: normal, Palpation: moderate abdominal tenderness, in the epigastric area, right upper quadrant and left upper quadrant, Liver: no appreciated palpable abnormalities, Hernia: not appreciated. Vital Signs: 17:55 BP 130 / 73; Pulse 93; Resp 19 S; Temp 98.0(TE); Pulse Ox 98% on R/A; Weight 108.86 kg jd3 (R); Height 5 ft. 5 in. (165.10 cm) (R); Pain 9/10; 19:30 BP 110 / 56; Pulse 89; Resp 15 S; Pulse Ox 100% on 2 lpm NC; Pain 2/10; ad5 20:30 BP 107 / 70; Pulse 99; Resp 16 S; Pulse Ox 96% on R/A; ad5 17:55 Body Mass Index 39.94 (108.86 kg, 165.10 cm) jd3 MDM: 17:58 Patient medically screened. siena 18:33 Differential diagnosis: abnormal EKG, acute myocardial infarction, acute pericarditis, siena anxiety, gastritis, gastroesophageal reflux disease (GERD), pancreatitis, pneumonia, pulmonary embolus, thoracic aortic disection, unstable angina. HEART Score: History: Slightly Suspicious (0), ECG: Normal (0), Age: < or = 45 years (0), Risk Factors: 1 or 2 risk factors (1), [+ Family HX] [Obesity] Troponin: < or = 1 x Normal Limit (0). The patient was given aspirin in the Emergency Department. The patient's deep vein thrombosis risk score was calculated as follows: Total Score: 0. This patient was found to be at low risk for a deep vein thrombosis by using the Well's assessment criteria. The patient's pulmonary embolism risk score was calculated as follows: Total Score: 0-2 points. This patient was found to be at low risk for a pulmonary embolism by using the Well's assessment criteria. ADENIKE Risk Score: TOTAL SCORE = 0. Data reviewed: vital signs, nurses notes, lab test result(s), EKG, radiologic studies, CT scan, plain films. Data interpreted: voice professor: rate is 93 beats/min, rhythm is regular, Pulse oximetry: on room air is 98 %. Test interpretation: by ED physician or midlevel provider: ECG, plain radiologic studies. Counseling: I had a detailed discussion with the patient and/or guardian regarding: the historical points, exam findings, and any diagnostic results supporting the discharge/admit diagnosis, lab results, radiology results. 01/29 18:09 Order name: Basic Metabolic Panel [facility] 01/29 18:09 Order name: CBC with Diff [facility] 01/29 18:09 Order name: LFT's; Complete Time: 19:06 [facility] 01/29 18:09 Order name: Magnesium; Complete Time: 19:06 [facility] 01/29 18:09 Order name: NT PRO-BNP; Complete Time: 19:06 [facility] 01/29 18:09 Order name: PT-INR; Complete Time: 18:51 [facility] 01/29 18:09 Order name: Troponin (emerg Dept Use Only); Complete Time: 19:06 [facility] 01/29 18:09 Order name: XRAY Chest (1 view); Complete Time: 20:00 [facility] 01/29 18:09 Order name: Lipase; Complete Time: 19:06 [facility] 01/29 18:09 Order name: Basic Metabolic Panel; Complete Time: 19:06 EDAK 01/29 18:09 Order name: CBC with Automated Diff; Complete Time: 18:51 [facility] 01/29 19:43 Order name: Troponin (emerg Dept Use Only): now please; Complete Time: 20:28 [facility] 01/29 19:55 Order name: Urine Dipstick-Ancillary; Complete Time: 20:00 EDAK 01/29 19:56 Order name: Urine --Ancillary (enter results); Complete Time: 20:28 tt3 01/29 18:04 Order name: EKG; Complete Time: 18:05 ll1 01/29 18:04 Order name: EKG - Nurse/Tech; Complete Time: 18:04 ll1 01/29 18:09 Order name: Cardiac monitoring; Complete Time: 18:21 [facility] 01/29 18:09 Order name: IV Saline Lock; Complete Time: 18:16 [facility] 01/29 18:09 Order name: Labs collected and sent; Complete Time: 18:16 [facility] 01/29 18:09 Order name: O2 Per Protocol; Complete Time: 18:16 [facility] 01/29 18:09 Order name: O2 Sat Monitoring; Complete Time: 18:16 [facility] 01/29 18:28 Order name: CT Aorta for Dissection; Complete Time: 20:00 [facility] 01/29 18:09 Order name: Urine Dipstick-Ancillary (obtain specimen); Complete Time: 19:59 [facility] 01/29 18:09 Order name: Urine Test (obtain specimen); Complete Time: 19:59 [facility] EC:30 Rate is 87 beats/min. Rhythm is regular. QRS [place] is Normal. NM interval is normal. QRS siena interval is normal. QT interval is normal. No Q waves. T waves are Normal. No ST changes noted. Clinical impression: NSR w/ Non-specific ST/T Changes and No evidence of ischemia. Administered Medications: 18:34 Drug: Aspirin Chewable Tablet 324 mg Route: PO; ll1 18:48 Drug: NS 0.9% 500 ml Route: IV; Rate: bolus; Site: right antecubital; ll1 20:23 Follow up: IV Status: Completed infusion; IV Intake: 500ml ad5 18:49 Drug: morphine 2 mg {Note: couldn't tolerate 4mg, only gave 2mg IV..} Route: IVP; Site: ll1 right antecubital; 20:24 Follow up: Response: No adverse reaction; Pain is decreased; RASS: Drowsy (-1) ad5 18:49 Drug: Zofran (Ondansetron) 4 mg Route: IVP; Site: right antecubital; ll1 20:24 Follow up: Response: No adverse reaction; Nausea is decreased ad5 18:50 Drug: Pepcid (famotidine) 20 mg Route: IVP; Site: right antecubital; ll1 20:24 Follow up: Response: No adverse reaction ad5 19:09 Drug: Ativan (LORazepam) 1 mg Route: IVP; Site: right antecubital; ll1 20:23 Follow up: Response: No adverse reaction; Anxiety decreased ad5 20:23 Drug: NS 0.9% 1000 ml Route: IV; Rate: 125 ml/hr; Site: right antecubital; ad5 20:45 Follow up: IV Status: Completed infusion; IV Intake: 500ml ad5 20:38 Drug: Bentyl (dicyclomine) 20 mg Route: PO; ad5 Disposition: 01/29/21 20:28 Discharged to Home. Impression: Abdominal tenderness, Other chest pain - non cardiac, Gastro-esophageal reflux disease, Obesity, unspecified. - Condition is Stable. - Discharge Instructions: Abdominal Pain, Adult, Nonspecific Chest Pain, Obesity, Adult, Chest Wall Pain, Mjbi-[id number], Abdominal Pain, Adult, [id number], Aspirin and Your Heart. - Prescriptions for Bentyl 20 mg Oral Tablet - take 1 tablet by ORAL route every 6 hours As needed; 20 tablet. Pepcid 20 mg Oral Tablet - take 1 tablet by ORAL route every 12 hours for 10 days; 20 tablet. - Medication Reconciliation Form, Thank You Letter, Antibiotic Education, Prescription Opioid Use form. - Follow up: GEORGINA SPEARS; When: 2 - 3 days; Reason: Recheck today's complaints, Continuance of care, Re-evaluation by your physician. Follow up: Ehsan Sifuentes; When: 2 - 3 days; Reason: Recheck today's complaints, Re-evaluation by your physician. Follow up: Devon Jackson; When: 2 - 3 days; Reason: Recheck today's complaints, Re-evaluation by your physician. - Problem is new. - Symptoms have improved. Signatures: Dispatcher [employer] EDMS Fletcher Jackson MD MD cha Williams, Irene, RN RN iw Roszak, Josh, PA PA jr8 Manuel Jimenez RN RN jd3 Lewis, Lynsay, RN RN ll1 Hardy Hodge ad5 Corrections: (The following items were deleted from the chart) 20:48 20:28 01/29/2021 20:28 Discharged to Home. Impression: Abdominal tenderness; Other ad5 chest pain - non cardiac; Gastro-esophageal reflux disease; Obesity, unspecified. Condition is Stable. Discharge Instructions: Abdominal Pain, Adult, Nonspecific Chest Pain, Obesity, Adult, Chest Wall Pain, [id number], Abdominal Pain, Adult, [id number]-lc-[id number], Nonspecific Chest Pain, Yhav-cg-[id number], Aspirin and Your Heart, Obesity, Adult, Tcsh-sz-[id number]. Prescriptions for Bentyl 20 mg Oral Tablet - take 1 tablet by ORAL route every 6 hours As needed; 20 tablet, Pepcid 20 mg Oral Tablet - take 1 tablet by ORAL route every 12 hours for 10 days; 20 tablet. and Forms are Medication Reconciliation Form, Thank You Letter, Antibiotic Education, Prescription Opioid Use. Follow up: GEORGINA SPEARS; When: 2 - 3 days; Reason: Recheck today's complaints, Continuance of care, Re-evaluation by your physician. Follow up: Ehsan Sifuentes; When: 2 - 3 days; Reason: Recheck today's complaints, Re-evaluation by your physician. Follow up: Devon Jackson; When: 2 - 3 days; Reason: Recheck today's complaints, Re-evaluation by your physician. Problem is new. Symptoms have improved. jr8
[2021-01-29] MEDS ORDERED: DICYCLOMINE HCL 10 MG CAP ONE (20:55)
[2021-01-29 20:58] VITALS: TEMP 98
[2021-01-29 21:02] VITALS: BP 107/70; O2SAT 96
== END 2021-01-29 20:48 | disposition home or self-care (01) ==
LOC: ER 17:33
DX: R07.89 Other chest pain (principal); K21.9 Gastro-esophageal reflux disease without esophagitis; E66.9 Obesity, unspecified; Z68.39 Body mass index [BMI] 39.0-39.9, adult; E05.90 Thyrotoxicosis, unspecified without thyrotoxic crisis or storm; F41.9 Anxiety disorder, unspecified
CPT/HCPCS: 96361; 93005; 85025; 80048; 36415; 83735; 81025; 85610; 80076; 81003; 84484 ×2; 83690; 83880; 71275; 74175; 71045; 96375; 96374; 99285; Q9967; J7040; J2405

== ENCOUNTER 2024-08-06 09:53 | Emergency (ER) | payer OTHER ==
[2024-08-06] MEDS ORDERED: ONDANSETRON 4 MG/2 ML VIAL ONE (11:20)
[2024-08-06] MEDS ORDERED: NA CHLORIDE 0.9% 500 ML ONE (11:20)
[2024-08-06] MEDS ORDERED: KETOROLAC 30 MG/ML INJ ONE (11:23)
[2024-08-06 11:24] LABS: Absolute Eosinophils 0.1 K/uL (0-0.5); Absolute Lymphocytes (CBC) 1.5 K/uL (0.7-4.9); Absolute Monocytes 0.6 K/uL (0.1-1.3); Absolute Neutrophil 6.6 K/uL (1.8-8.0); Basophils % 0.5 % (0-1.3); Eosinophils % 1.1 % (0-4.4); Hematocrit 41.9 % (36.0-45.0); Hemoglobin 13.8 g/dL (12.0-15.0); Lymphocytes % 16.5 % (15.3-44.8); MCH 28.3 pg (27.0-35.0); MCHC 32.9 g/dL (32.0-36.0); MPV 7.1 fL (7.6-11.3); Monocytes % 7.3 % (3.3-12.3); Neutrophils % 74.6 % (41.7-73.7); Platelets 312 thou/uL (152-406); RBC Red Blood Cell Count 4.87 M/uL (3.86-4.86); Red Cell Distribution Width 14.3 % (12.1-15.2)
[2024-08-06 11:35] LABS: SARS-CoV-2 Antigen CONTROL BLUE LINE VIS/BG OK; SARS-CoV-2 Antigen Rapid Res Negative (Negative)
[2024-08-06 11:40] LABS: Albumin 3.2 g/dL (3.4-5.0); Albumin/Globulin Ratio 0.7 (1.1-1.8); Anion Gap 7.9 mEq/L (5.0-15.0); Bilirubin Total 0.5 mg/dL (0.2-1.0); Globulin 4.7 g/dL (2.3-3.5); Potassium 3.9 mEq/L (3.5-5.1); Protein, Total 7.9 g/dL (6.4-8.2)
--- NOTE | 2024-08-06 12:10 | EDPHYS ---
Physician Documentation [facility] Name: Saba Zelaya Age: 49 yrs Sex: Female : 1975 Arrival Date: 08/06/2024 Time: 09:53 Bed 19 Private MD: ED Physician Jose Florence HPI: 08/06 10:26 This 49 yrs old Female presents to ER via Ambulatory with complaints of ec2 Abdominal Pain. 10:26 Patient arrives today for evaluation of generalized abdominal pain along with nausea ec2 and diarrhea. Reports that she has been having symptoms onset for about 3 days. Patient reports decreased p.o. intake, states that she generally feels unwell. Previous history of cholecystectomy, previous history of as well.. Historical: - Allergies: 10:07 Amoxicillin; diarrhea and yest infection; ll1 10:07 Latex; ll1 - PMHx: 10:07 Anemia; Anxiety; gastritis; GERD; hyperthyroidism; ll1 - PSHx: 10:16 Cholecystectomy; section; hernia repair; ll1 - Immunization history:: Adult Immunizations up to date. - Infectious Disease History:: Denies. - Social history:: Smoking status: Patient denies any tobacco usage or history of. ROS: 10:26 Constitutional: as per hpi ec2 Exam: 10:26 Constitutional: GEN: NAD Head: atraumatic Eyes: EOMI Ears: External ears are ec2 normal. CV: regular rate LUNGS: no respiratory distress ABD: non-distended, obese, soft, not guarding, nonrigid SKIN: no evidence of rashes MSK: no evidence of trauma Vital Signs: 10:17 BP 125 / 86; Pulse 100; Resp 17; Temp 97.5; Pulse Ox 100% ; Weight 106.59 kg; Height 5 ll1 ft. 2 in. ; 11:35 BP 122 / 81; Pulse 80; Resp 17; Pulse Ox 99% on R/A; rs5 12:20 BP 118 / 79; Pulse 77; Resp 17; Pulse Ox 99% on R/A; rs5 10:17 Body Mass Index 42.98 (106.59 kg, 157.48 cm) ll1 MDM: 10:20 Medical Screening Exam initiated ec2 10:26 Data reviewed: vital signs, nurses notes. ED course: Patient arrives today for ec2 evaluation of generalized abdominal pain. Examination is remarkable for well-appearing nontoxic individual with general abdominal TTP without guarding or rigidity. Will obtain lab work as well as urine studies and treat the patient's nausea with antiemetic as well as crystalloid. Suspect gastroenteritis, likely viral process.. 12:09 ED course: On reassessment patient is well-appearing no acute distress. Suspect ec2 possible gastroenteritis, possible gastritis. Will discharge home. Return precautions given.. 08/06 10:25 Order name: CBC with Diff; Complete Time: 11:38 ec2 08/06 10:25 Order name: CMP; Complete Time: 11:48 ec2 08/06 10:25 Order name: Lipase; Complete Time: 11:48 ec2 08/06 10:26 Order name: Influenza Screen (a \T\ B); Complete Time: 11:48 ec2 08/06 10:26 Order name: SARS RAPID; Complete Time: 11:38 ec2 08/06 10:25 Order name: IV Saline Lock; Complete Time: 11:18 ec2 08/06 10:25 Order name: Labs collected and sent; Complete Time: 11:18 ec2 Administered Medications: 11:15 Drug: Ondansetron IVP 4 mg IVP once; over 2 minutes Route: IVP; Site: right antecubital;rs5 11:33 Follow up: Response: No adverse reaction; Nausea is decreased rs5 11:15 Drug: NS 0.9% IV 500 ml 500 ml IV at 1 bolus once; to be given as a bolus over 30 rs5 minutes Volume: 500 ml; Route: IV; Rate: 1 bolus; Site: right antecubital; 11:36 Follow up: Response: No adverse reaction rs5 11:45 Follow up: Response: No adverse reaction; IV Status: Completed infusion; IV Intake: rs5 500ml 11:15 Drug: Ketorolac IVP 15 mg IVP once Route: IVP; Site: right antecubital; rs5 11:36 Follow up: Response: No adverse reaction; Pain is decreased rs5 Disposition Summary: 08/06/24 12:10 Discharge Ordered Notes: Location: Home ec2 Condition: Stable ec2 Diagnosis - Infectious gastroenteritis and colitis, unspecified ec2 Followup: ec2 - With: Private Physician - When: - Reason: Re-evaluation by your physician Discharge Instructions: - Discharge Summary Sheet ec2 - Viral Gastroenteritis, Adult ec2 Forms: - Medication Reconciliation Form ec2 - Antibiotic Education ec2 - Prescription Opioid Use ec2 - Patient Portal Instructions ec2 - Leadership Thank You Letter ec2 Prescriptions: - Zofran 4 mg Oral Tablet - take 1 tablet ORAL route every 12 hours As needed; 20 tablet; Refills: 0, ec2 Product Selection Permitted - methocarbamol 500 mg Oral tablet - take 1 tablet ORAL route 4 times per day; 20 tablet; Refills: 0, Product ec2 Selection Permitted Signatures: Dispatcher [employer] Anne Victor RN RN ll1 Nilay Berry RN RN rs5 Jose Florence MD MD ec2
--- NOTE | 2024-08-06 12:10 | ER ---
Nurse's Notes [facility] Name: Saba Zelaya Age: 49 yrs Sex: Female : 1975 Arrival Date: 08/06/2024 Time: 09:53 Bed 19 Private MD: Diagnosis: Infectious gastroenteritis and colitis, unspecified Presentation: 08/06 10:17 Chief complaint:. Chief complaint: Patient states: Abdominal pain for 3 days. ll1 Coronavirus screen: Client denies travel out of the [place] in the last 14 days. At this time, the client does not indicate any symptoms associated with coronavirus-19. Ebola Screen: Patient denies travel to an Ebola-affected area in the 21 days before illness onset. Initial Sepsis Screen: Does the patient meet any 2 criteria? No. Patient's initial sepsis screen is negative. Does the patient have a suspected source of infection? No. Patient's initial sepsis screen is negative. Risk Assessment: Do you want to hurt yourself or someone else? Patient reports no desire to harm self or others. Onset of symptoms was August 04, 2024. 10:17 Method Of Arrival: Ambulatory 1 10:17 Acuity: LEONIDAS 3 ll1 Triage Assessment: 10:19 General: Appears uncomfortable, Behavior is calm, cooperative, appropriate for age. ll1 General: Reports fatigue for. Pain: Complains of pain in abdomen Quality of pain is described as aching, crampy. Neuro: Reports headache. Respiratory: Reports cough that is. GI: Reports lower abdominal pain, upper abdominal pain, cramping, diarrhea. Historical: - Allergies: 10:07 Amoxicillin; diarrhea and yest infection; ll1 10:07 Latex; ll1 - PMHx: 10:07 Anemia; Anxiety; gastritis; GERD; hyperthyroidism; ll1 - PSHx: 10:16 Cholecystectomy; section; hernia repair; ll1 - Immunization history:: Adult Immunizations up to date. - Infectious Disease History:: Denies. - Social history:: Smoking status: Patient denies any tobacco usage or history of. Screenin:16 [facility] ED Fall Risk Assessment (Adult) History of falling in the last 3 months, rs5 including since admission No falls in past 3 months (0 pts) Confusion or Disorientation No (0 pts) Intoxicated or Sedated No (0 pts) Impaired Gait No (0 pts) Mobility Assist Device Used No (0 pt) Altered Elimination No (0 pt) Score/Fall Risk Level 0 - 2 = Low Risk Oriented to surroundings, Maintained a safe environment. Abuse screen: Denies threats or abuse. Nutritional screening: No deficits noted. Tuberculosis screening: No symptoms or risk factors identified. Assessment: 10:15 General: Appears in no apparent distress. uncomfortable, Behavior is calm, cooperative. rs5 Pain: Complains of pain in abdomen Pain currently is 5 out of 10 on a pain scale. Quality of pain is described as aching, Is continuous. Neuro: Level of Consciousness is awake, alert, obeys commands, Oriented to person, place, time, situation. Cardiovascular: Patient's skin is warm and dry. Respiratory: Airway is patent Respiratory effort is even, unlabored, Respiratory pattern is regular, symmetrical. GI: Abdomen is round non-distended, Bowel sounds present X 4 quads. Abd is soft and non tender X 4 quads. Reports nausea. : No signs and/or symptoms were reported regarding the genitourinary system. EENT: No signs and/or symptoms were reported regarding the EENT system. Derm: Skin is intact, Skin is pink, warm \T\ dry. Musculoskeletal: Range of motion: intact in all extremities. 11:35 Reassessment: Patient and/or family updated on plan of care and expected duration. Pain rs5 level reassessed. Patient is alert, oriented x 3, equal unlabored respirations, skin warm/dry/pink. 12:15 Reassessment: Patient and/or family updated on plan of care and expected duration. Pain rs5 level reassessed. Patient is alert, oriented x 3, equal unlabored respirations, skin warm/dry/pink. Vital Signs: 10:17 BP 125 / 86; Pulse 100; Resp 17; Temp 97.5; Pulse Ox 100% ; Weight 106.59 kg; Height 5 ll1 ft. 2 in. ; 11:35 BP 122 / 81; Pulse 80; Resp 17; Pulse Ox 99% on R/A; rs5 12:20 BP 118 / 79; Pulse 77; Resp 17; Pulse Ox 99% on R/A; rs5 10:17 Body Mass Index 42.98 (106.59 kg, 157.48 cm) ll1 ED Course: 09:57 Patient arrived in ED. mg5 10:07 Arm band placed on. ll1 10:11 Jose Florence MD is Attending Physician. ec2 10:16 Patient has correct armband on for positive identification. Bed in low position. Call rs5 light in reach. Side rails up X2. 10:18 Triage completed. ll1 10:20 No provider procedures requiring assistance completed. Inserted saline lock: 20 gauge rs5 in right antecubital area, using aseptic technique. Blood collected. Flushed with 10 mL NS. 10:48 Nilay Berry, RN is Primary Nurse. rs5 12:22 Provided Education on: discharge instructions . rs5 12:25 IV discontinued, intact, bleeding controlled, No redness/swelling at site. Pressure rs5 dressing applied. Administered Medications: 11:15 Drug: Ondansetron IVP 4 mg IVP once; over 2 minutes Route: IVP; Site: right antecubital;rs5 11:33 Follow up: Response: No adverse reaction; Nausea is decreased rs5 11:15 Drug: NS 0.9% IV 500 ml 500 ml IV at 1 bolus once; to be given as a bolus over 30 rs5 minutes Volume: 500 ml; Route: IV; Rate: 1 bolus; Site: right antecubital; 11:36 Follow up: Response: No adverse reaction rs5 11:45 Follow up: Response: No adverse reaction; IV Status: Completed infusion; IV Intake: rs5 500ml 11:15 Drug: Ketorolac IVP 15 mg IVP once Route: IVP; Site: right antecubital; rs5 11:36 Follow up: Response: No adverse reaction; Pain is decreased rs5 Medication: 11:36 VIS not applicable for this client. rs5 Intake: 11:45 IV: 500ml; Total: 500ml. rs5 Outcome: 12:10 Discharge ordered by . ec2 12:25 Discharged to home ambulatory, rs5 12:25 Condition: stable rs5 12:25 Discharge instructions given to patient, family, Instructed on discharge instructions, follow up and referral plans. medication usage, Demonstrated understanding of instructions, follow-up care, medications, Prescriptions given X 2, 12:28 Patient left the ED. rs5 Signatures: Anne Carballo RN RN ll1 Nilay Berry RN RN rs5 Connie Gutierres mg5 Florence, Jose, MD MD ec2
[2024-08-06 12:36] VITALS: TEMP 97.5
[2024-08-06 12:42] VITALS: BP 122/81; O2SAT 99
== END 2024-08-06 12:28 | disposition home or self-care (01) ==
LOC: ER 09:53
DX: A09 Infectious gastroenteritis and colitis, unspecified (principal); Z11.52 Encounter for screening for COVID-19
CPT/HCPCS: 85025; 36415; 83690; 80053; 87804 ×2; 96375; 96374; 99284; 87811; J2405; J7040